=== PATIENT | female | born 1935 | race Caucasian/White ===

== ENCOUNTER 2016-07-31 07:09 | Inpatient (IN) | payer MEDICARE, BC ==
--- NOTE | ~2016-07-31 | CO ---
Unit #: [id number] #: [id number] Patient: FRANDY CONLEY [id number] [facility]. [place], [place] [address] [id number] MR#: [id number] NAME: FRANDY CONLEY ROOM: [facility] Age: 80 Sex: F Admission Date: 07/31/2016 : 1935 Attending Physician: Manuel Dolan III, M.D. Primary Care Physician: Kelly Frey A.P.R.N. Consultation Date: 08/02/2016 CONSULTATION REPORT REASON FOR CONSULTATION Renal insufficiency. Thank you very much for asking us to see this patient in consultation. HISTORY OF PRESENT ILLNESS Ms. Mariajose Conley is an 80-year-old female, who underwent a laparoscopic colostomy take down. Subsequently, postop noted to have an increased blood pressure of 225/95 as well as a decreasing hemoglobin. She was retaken operating room to fix a little leak. She has a history of sigmoid resection with colostomy in the past secondary to perforation. We were asked to see the patient secondary to increasing BUN and creatinine of 51 and 3.7 with potassium of 4.0. The patient is alert. She is a little sore, but she is not having any chest pain, chest heaviness, shortness of breath, nausea or vomiting. PAST MEDICAL HISTORY History of hypertension, history of hyperlipidemia, history of atrial fibrillations, history of atherosclerotic coronary artery disease normal EF, history of sigmoid resection, history of PE/DVT 9 years ago, history of obstructive sleep apnea, history of bladder surgery, status post appendectomy, status post hysterectomy, status post left knee. SOCIAL HISTORY She is a previous smoker, none now. She is a . Retired. No alcohol. ALLERGIES Include penicillin, diazepam, latex, and contrast dye. CURRENT MEDICATIONS Include Tenormin, lactated Ringer's, morphine, and Zofran. REVIEW OF SYSTEMS She denies any visual problems or sinus problems. No cough or hemoptysis. No neck pain or neck stiffness. No chest pain, chest heaviness, or palpitations. No shortness of breath. She has had abdomen sore. She denies any lower extremity swelling. No recent seizures, strokes, or skin rashes. PHYSICAL EXAMINATION GENERAL: She is alert and oriented. VITAL SIGNS: Temperature is 98.1, T-max; pulse 54 to 65; blood pressure 90 to 120 over 40s to 50s. HEENT: She is normocephalic and atraumatic. Pupils are equal, round, and Unit #: [id number] #: [id number] Patient: FRANDY CONLEY reactive to light. Extraocular muscles are intact. Hearing appears to be normal. Mouth is clear. No erythema. No exudate. NECK: Supple. No adenopathy. CARDIAC: She has a regular rhythm with about a 2/6 systolic ejection murmur. LUNGS: Fairly clear bilaterally. No wheezes, rhonchi, or rales. ABDOMEN: Bowel sounds are positive. Wound dressed. EXTREMITIES: She has no lower extremity swelling. Her pulses are intact in upper and lower extremities. JOINTS: No joint pain or joint swelling. SKIN: No acute rashes. NEUROLOGIC: Appears to be intact motor and sensory grossly. : Deferred. DIAGNOSTIC STUDIES LABORATORY RESULTS: Shows sodium of 133, potassium of 4.0, chloride is 102, bicarb is 22, BUN of 51, creatinine 3.7, glucose is 107, calcium is 8.2. Hemoglobin 7.7, it dropped as low as 5.8; white count 16,500; platelets 140,000. On 07/21/2016, she had a creatinine of 1.4 and on 04/15/2016, creatinine of 1.1. INR is 1.7. ASSESSMENT AND PLAN Acute onset of mild chronic kidney disease, stage 3. Probably, I suspect the patient's renal insufficiency is most likely related to intravascular volume depletion from bleeding potential, acute tubular necrosis as well and surgery. I agree with intermittent transfusion IV fluids. We will mold changer to normal saline. Hopefully, over the next 24 to 72 hours, her renal function will start improving. We will check renal ultrasound. We will check UA culture and sensitivity, urine sodium, random urine eosinophils. We will follow inputs and outputs and depending on how she does, depending on what further workup and treatment. Dictated byBrianne Matthews M.D. CHRISTA/ruben TD: 08/06/2016 05:04 JOB #: [id number] CONSULTATION REPORT X Joby Matthews MD CONSULTATION REPORT
--- NOTE | ~2016-07-31 | OR ---
Unit #: [id number] #: [id number] Patient: FRANDY CONLEY [id number] [address] [address] [id number] I MR#: [id number] NAME: FRANDY CONLEY ROOM: 471 Date of Procedure: 08/02/2016 Admission Date: 07/31/2016 Surgeon: Kareem Mark M.D. : 1935 Attending Physician: Manuel Dolan III, M.D. Primary Care Physician: Kelly Frey A.P.R.N. OPERATIVE REPORT PREOPERATIVE DIAGNOSIS Bleeding from left lower quadrant incision. POSTOPERATIVE DIAGNOSIS Subdermal bleeder. PROCEDURE PERFORMED Wound exploration and cauterization of the bleeding vessel. ANESTHESIA LMA. COMPLICATIONS None. ESTIMATED BLOOD LOSS Minimal. DESCRIPTION OF PROCEDURE After the patient was prepped and draped in usual fashion, the left lower quadrant transverse incision was examined. There was a steady drip of blood emanating from this. All the vinay were removed. The wound was opened. There was a liquefied hematoma, which was evacuated. Careful inspection revealed there was no blood coming from the subfascial layer. The fascial closure was intact. Pressing around the fascia, there was no blood could be expressed from underneath. There was a subdermal skin bleeder, which was identified and medial portion of the incision on the inferior side. This was cauterized until it stops bleeding. We waited about 4 to 5 minutes to see if anything else should start bleeding, nothing else started bleeding. With this, the skin was closed with clips. Dressings applied. The patient was taken to the recovery room in good condition. Dictated by... Deborah SchwartzT/ruben TD: 08/03/2016 04:37 JOB #: [id number] Unit #: [id number] #: [id number] Patient: FRANDY CONLEY OPERATIVE REPORT X Kareem Mark PROCEDURE OPERATIVE NOTE
--- NOTE | ~2016-07-31 | CO ---
Unit #: [id number] #: [id number] Patient: RFANDY CONLEY [id number] [address] [place], [place] [address] [id number] MR#: [id number] NAME: FRANDY CONLEY ROOM: 471 Age: 80 Sex: F Admission Date: 07/31/2016 : 1935 Attending Physician: Manuel Dolan III, M.D. Primary Care Physician: Kelly Frey A.P.R.N. Consultation Date: 07/31/2016 CONSULTATION REPORT REASON FOR CONSULTATION Hypertension. HISTORY OF PRESENT ILLNESS This is an 80-year-old white female, who is admitted status post laparoscopic colostomy takedown. Preoperatively, the patient had a Lexiscan Cardiolite stress test in May that was normal. Her last echocardiogram in 2015 showed no significant valvular heart disease and moderate pulmonary hypertension. Intraoperatively, the patient was hypertensive. In recovery, her blood pressure was elevated to 225/95 mmHg. Since, her blood pressure has stabilized. The patient has no complaints of chest pain, dyspnea, palpitations, or dizziness. She says at home she takes her blood pressure in the mornings and is elevated. After she takes her medications, she rechecked her blood pressure and it becomes normal. She is reasonably active without any symptoms. PAST MEDICAL HISTORY 1. 2D echocardiogram on 02/24/2016 shows ejection fraction of 65% with mild tricuspid regurgitation and right ventricular systolic pressure 51 mmHg. 2. Lexiscan Cardiolite stress test on 06/30/2016 showed no ischemia and an ejection fraction of 55%. No focal wall abnormalities. 3. Cardiac catheterization in 2010 per [facility] office note showed mid LAD stenosis of 30% to 40%. There is luminal irregularities in the right coronary artery and circumflex. 4. Hypertension. 5. Hyperlipidemia. 6. Paroxysmal atrial fibrillation, on anticoagulation with Coumadin. 7. Obstructive sleep apnea. 8. DVT/pulmonary embolism. 9. Former smoker. PAST SURGICAL HISTORY 1. Left knee replacement. 2. Hysterectomy. 3. Cataract extraction. 4. Appendectomy. 5. Partial colectomy with colostomy. 6. Laparoscopic cholecystectomy. 7. Bladder lift with mesh placement. SOCIAL HISTORY The patient is retired. She is . She quit smoking more than 25 years ago. Previously smoked a 1-1/2 packs of cigarettes daily for 20 Unit #: [id number] #: [id number] Patient: FRANDY CONLEY. Drinks alcohol on rare occasions. No illicit drug use. FAMILY HISTORY Mother had myocardial infarction, but lived to be in her 80s. Father also had myocardial infarction and he lived to be in his 90s. ALLERGIES Penicillin, diazepam, latex, and IV contrast. HOME MEDICATIONS Glucosamine chondroitin 1 tablet daily, MiraLAX 17 g daily p.r.n., amiodarone 200 mg daily, Centrum Silver 1 tablet daily, lisinopril 10 mg daily, omeprazole 20 mg b.i.d., Coumadin 5 mg daily, atenolol 25 mg daily. REVIEW OF SYSTEMS CONSTITUTIONAL: Negative for fever or chills. Reports no weight gain or weight loss. HEENT: No headache, hearing, or vision changes, difficulty with swallowing. Negative for dizziness. CARDIOVASCULAR: Has no symptoms of angina. Denies palpitations. No paroxysmal nocturnal dyspnea or orthopnea. No syncope or near syncope. RESPIRATORY: Negative for dyspnea, cough, or hemoptysis. GASTROINTESTINAL: No abdominal pain, nausea, or vomiting. No constipation. No melena. EXTREMITIES: Negative for lower extremity edema. PHYSICAL EXAMINATION VITAL SIGNS: Blood pressure 126/70, heart rate 62, temperature 97.7. BMI 23. GENERAL: This is an 80-year-old thin frame white female, who is in no acute distress. NEUROLOGIC: She is awake, alert, and oriented. There are no focal weaknesses. NECK: Trachea is midline. No thyromegaly or lymphadenopathy. No jugular venous distention. HEART: S1 and S2. Heart sounds are normal. No murmurs. No rubs or clicks. Regular rate and rhythm. LUNGS: Clear to auscultation without rales, rhonchi, or wheezing. ABDOMEN: Soft, tender, with hypoactive bowel sounds. EXTREMITIES: Without leg edema. SKIN: Warm and dry. DIAGNOSTIC STUDIES LABORATORY RESULTS: White count 9.0, hemoglobin 13.3, hematocrit 37.7, platelet count 275. CARDIOVASCULAR STUDIES: EKG pending. IMPRESSION 1. Status post laparoscopic colostomy takedown. 2. Labile hypertension. 3. Paroxysmal atrial fibrillation, currently in normal sinus rhythm. 4. Preserved left ventricular systolic function. Ejection fraction of 65%. 5. Recent Lexiscan Cardiolite stress test in 05/2016 normal. 6. Nonobstructive coronary artery disease per cardiac catheterization in 2010. Unit #: [id number] #: [id number] Patient: FRANDY CONLEY PLAN 1. Cardiology was consulted for hypertensive management. The patient's blood pressure is currently fluctuating. We will avoid treating elevated blood pressure with IV medications. 2. Continue atenolol and lisinopril. Change dosing of lisinopril to p.m. 3. Restart Coumadin when okay with surgery. 4. Baseline EKG will be done. 5. We will follow the patient with you. Thank you for allowing us to assist in this patient's care. Dictated by... Donny Lane A.P.R.N. for Deborah Shankar/ruben TD: 08/01/2016 22:38 JOB #: [id number] CC: Sebastián Ghosh M.D. CONSULTATION REPORT X Donny Lane APRN X CONSULTATION REPORT
--- NOTE | ~2016-07-31 | DS ---
Unit #: [id number] #: [id number] Patient: FRANDY CONLEY [id number] [place], [place] [address] [id number] I MR#: [id number] NAME: RFANDY CONLEY. ROOM: [facility] Age: 80 Sex: F Admission Date: 07/31/2016 : 1935 Discharge Date: 08/06/2016 Attending Physician: Manuel Dolan III, M.D. Primary Care Physician: Kelly Frey A.P.R.N. DISCHARGE SUMMARY CONSULTATIONS 1. Dr. Ghosh with cardiology. 2. Dr. Matthews with renal. PROCEDURE PERFORMED 1. On 07/31/2016 she underwent laparoscopic colostomy takedown. 2. On 08/02/2016 she underwent left lower quadrant wound exploration for postoperative bleeding. ADMITTING DIAGNOSIS History of colostomy secondary to perforated diverticulitis. SECONDARY DIAGNOSES 1. Acute kidney injury. 2. Hypertension. BRIEF HOSPITAL COURSE This is an 80-year-old lady who is 6 months out from exploratory laparotomy with colostomy creation for perforated diverticulitis. She was brought in for laparoscopic colostomy takedown. The procedure went well; however, postoperatively, presumably secondary to blood thinners, she developed a bleed in the subcutaneous tissue. She dropped her hemoglobin significantly and was brought back to surgery for left lower quadrant wound exploration. She was transfused, and her hemoglobin ultimately stabilized. She was seen by her premium card cancellation clerk while she was in the hospital, and because of the postoperatively bleeding, she had some acute kidney injury that did resolve with transfusion and hydration. Prior to discharge she was having good GI function and tolerating a diet. Her incisions were okay, and her hemoglobin was stable at 10.5. DISPOSITION Transfer to rehab. The patient likely is going to need short-term rehab for mobility issues. FOLLOW-UP She is to see me in the office next week to have her vinay removed. DISCHARGE INSTRUCTIONS 1. She has been instructed it is okay to shower. 2. Her diet is as tolerated. MEDICATIONS I am going to resume her previous medications, add her pain medication and Unit #: [id number] #: [id number] Patient: GRASS,FRANDY L also have cardiology verify that there are no other medications that they want her to be taking at time of discharge. Dictated by... Manuel Dolan III, M.D. VCL/db TD: 08/06/2016 08:01 JOB #: [id number] DISCHARGE SUMMARY X Manuel Dolan III, MD X DISCHARGE SUMMARY
--- NOTE | ~2016-07-31 | EKG ---
PATIENT: FRANDY CONLEY UNIT #: [id number] Ventricular Rate: 61 BPM Atrial Rate: 61 BPM P-R Interval: 176 ms QRS Duration: 102 ms Q-T Interval: 472 ms QTC Calculation(Bezet): 475 ms P [place]: 63 degrees Calculated R [place]: -9 degrees Calculated T [place]: 29 degrees Diagnosis Line: Normal sinus rhythm Diagnosis Line: Voltage criteria for left ventricular hypertrophy Diagnosis Line: Abnormal ECG Diagnosis Line: When compared with ECG of 12-APR-2016 07:51, Diagnosis Line: No significant change was found Diagnosis Line: Confirmed by JULIA BLANC MD ([id number]) on Diagnosis Line: 08/04/2016 3:55:54 PM INTERPRETING MD: GUANACO OLVERA
--- NOTE | ~2016-07-31 | OR ---
Unit #: [id number] #: [id number] Patient: FRANDY CONLEY [id number] [address] [place], [place] [address] [id number] I MR#: [id number] NAME: FRANDY CONLEY. ROOM: 471 Date of Procedure: 07/30/2016 Admission Date: 07/31/2016 Surgeon: Manuel Dolan III, M.D. : 1935 Attending Physician: Manuel Dolan III, M.D. Primary Care Physician: Kelly Frey A.P.R.N. OPERATIVE REPORT PREOPERATIVE DIAGNOSES Dysphagia and history of perforated sigmoid diverticulitis. POSTOPERATIVE DIAGNOSES Normal upper endoscopy, mild sigmoid diverticulosis and benign-appearing polyp at 50 cm of the colon. PROCEDURE PERFORMED Esophagogastroduodenoscopy with biopsy and colonoscopy to cecum with snare polypectomy x1. ANESTHESIA 5 mg of Versed and 50 mg of Demerol. SPECIMENS Antrum was sent for JADIEL testing and polyp at 50 cm was biopsied. INDICATIONS FOR PROCEDURE This is an 80-year-old lady, who presented about 6 months ago with perforated sigmoid diverticulitis with abscess. She underwent resection with colostomy formation. She has been seen in the office and evaluated for colostomy takedown. She has also been complaining of some dysphagia and is here today for upper and lower endoscopy. It has been 10 years since her last colonoscopy. DESCRIPTION OF PROCEDURE After consent was obtained, the patient was brought to the endoscopy suite and placed in left lateral decubitus position. We titrated the above sedation and I passed an EGD scope easily into the esophagus under direct visualization. She had normal peristalsis. No evidence of any erosions or esophagitis. There was no Schatzki's ring seen. I did not see hiatal hernia. The scope was advanced on into the stomach. I took a biopsy of the antrum for JADIEL testing. There were no ulcerations, gastritis or masses. The pylorus was patent and the first and second portions of duodenum appeared normal. I then retroflexed the scope within the cardia and did not see any other abnormalities. The scope was then carefully withdrawn. I then removed her colostomy appliance. I passed the colonoscope through the colostomy and advanced this all the way to the cecum. She had normal mucosa. There was some mild residual left-sided diverticular disease. She had one small hyperplastic appearing polyp at about 50 cm. This was snared and cauterized and a portion of it was captured and sent to pathology. I did not see any other masses. Her Unit #: [id number] #: [id number] Patient: FRANDY CONLEY bowel prep was good. The scope was then carefully withdrawn. I am going to have her stay on clear liquids today and be n.p.o. after midnight for laparoscopic colostomy takedown tomorrow. Dictated by... Manuel Dolan III, M.D. VCL/ruben TD: 07/31/2016 02:55 JOB #: [id number] OPERATIVE REPORT X Manuel Dolan III, MD PROCEDURE OPERATIVE NOTE
--- NOTE | ~2016-07-31 | EKG ---
PATIENT: FRANDY CONLEY UNIT #: [id number] Ventricular Rate: 73 BPM Atrial Rate: 73 BPM P-R Interval: 126 ms QRS Duration: 104 ms Q-T Interval: 414 ms QTC Calculation(Bezet): 456 ms P [place]: 34 degrees Calculated R Bone [place]: -18 degrees Calculated T Bone Gap: 49 degrees Diagnosis Line: Normal sinus rhythm Diagnosis Line: Voltage criteria for left ventricular hypertrophy Diagnosis Line: Abnormal ECG Diagnosis Line: When compared with ECG of 31-JUL-2016 17:35, Diagnosis Line: No significant change was found Diagnosis Line: Confirmed by SINA RIZVI MD ([id number]) on 08/06/2016 Diagnosis Line: 5:40:55 PM INTERPRETING MD: BELKYS OLVERA
--- NOTE | ~2016-07-31 | OR ---
Unit #: [id number] #: [id number] Patient: FRANDY CONLEY [id number] [address] [place], [place] [address] [id number] MR#: [id number] NAME: FRANDY CONLEY ROOM: 471 Date of Procedure: 07/31/2016 Admission Date: 07/31/2016 Surgeon: Manuel Dolan III, M.D. : 1935 Attending Physician: Manuel Dolan III, M.D. Primary Care Physician: Kelly Frey A.P.R.N. OPERATIVE REPORT PREOPERATIVE DIAGNOSIS History of colostomy secondary to perforated diverticulitis. POSTOPERATIVE DIAGNOSIS History of colostomy secondary to perforated diverticulitis. PROCEDURE PERFORMED Laparoscopic takedown of end colostomy with colorectal anastomosis. MANAGER BUSINESS INFORMATION Moris Kwok. SPECIMEN Colostomy was sent to pathology. COMPLICATIONS None apparent. INDICATIONS FOR PROCEDURE This is an 80-year-old lady, who is 6 months out from exploratory laparotomy and colostomy formation for perforated diverticulitis. She underwent colonoscopy yesterday and was noted to have only some mild residual diverticular disease. She is here today for colostomy takedown. DESCRIPTION OF PROCEDURE After consent was obtained, the patient was brought to the operating room and placed in the supine position. General anesthetic was administered. She was then carefully positioned in the dorsal lithotomy position in Blake stirrups. I then irrigated her rectum and removed two large pieces of formed stool. We prepped and draped her abdomen and perineum in standard surgical fashion. I made a 5-mm incision in the right upper quadrant. I used an Optiview to enter the peritoneal cavity without any difficulty. CO2 pneumoperitoneum was then established. Next, a second 5-mm port was placed in the right lower quadrant. I began by performing diagnostic laparoscopy. She had very few adhesions that were easily taken down bluntly. I was able to sharply dissect out the underside of her colostomy and I was able to see clearly the rectal pouch. I then made elliptical incision around the colostomy. I dissected down to the fascia and I was able to excise the colostomy from the surrounding fascial defect. Once the colostomy was fully mobilized, I then trimmed the excess bit of the tip of the colostomy. I then used a 29 mm EEA anvil that I brought out through the antimesenteric border and closed the distal end of Unit #: [id number] #: [id number] Patient: FRANDY CONLEY the colon with a ZEUS 55 stapler. Next, the proximal colon was placed back into the abdominal cavity. I then closed the fascial defect with interrupted #1 Vicryl sutures. Next, I re-obtained pneumoperitoneum. I then passed the other end of the stapler per rectum. We were able to easily deploy the spike through the anterior side of the rectal pouch. I was able to connect the two ends of the stapler together. It was closed down and then the stapler was fired without any problems. Next, the stapler was carefully removed. I tested the anastomosis by submerging it under water and insufflating air per rectum, and I did not see any air bubbles indicating this was airtight and watertight. I then irrigated again. I had excellent hemostasis and all needle, sponge, and instrument counts were correct x2. I removed the two trocars and released the pneumoperitoneum. I reapproximated the skin edges with stapling device. She tolerated the procedure without any problems and returned to the recovery room in stable condition. Dictated by... Manuel Dolan III, M.D. VCL/ruben TD: 08/01/2016 04:10 JOB #: [id number] OPERATIVE REPORT X Manuel Dolan III, MD PROCEDURE OPERATIVE NOTE
--- NOTE | ~2016-07-31 | US78 ---
[facility] A Service of [facility] & [facility] RADIOLOGY TEXT RESULTS PATIENT: FRANDY CONLEY LOCATION: [place] [address]- : [birth year] UNIT #: [id number] AGE: [address]: Manuel Dolan III, MD SEX: F ORDER DR: [id number] [facility] [address] [facility]. [place], [place] [address] [id number] I MR#: [id number] Acc #: [id number] NAME: FRANDY CONLEY : 1935 SEX: F STUDY DATE/TIME: 08/03/2016 10:19 UNIT: [facility] [place] [facility] ROOM: [facility] STUDY DESCRIPTION: US Kidney Duplex Complete Attending Physician: Manuel Dolan III, M.D. Ordering Physician: Manuel Dolan III, M.D. Primary Care Physician: Kelly Frey A.P.R.N. MEDICAL IMAGING REPORT This report is preliminary unless electronic signature is present EXAM Renal ultrasound, 08/03/2016 HISTORY Acute renal failure, abnormal renal function tests. Elevated BUN of 50, elevated creatinine 1.9. Abnormally low GFR of 27 on 08/03/2016. Abdomen pain for 2 months. FINDINGS The right kidney measures 9.9 cm while the left kidney measures 9.0 cm in longitudinal dimensions. There is no evidence of hydronephrosis or nephrolithiasis. No cystic or solid mass lesions were seen on either kidney. There is normal renal cortical echogenicity. The bladder was empty for the exam and therefore poorly visualized. IMPRESSION 1. Negative renal ultrasound. 2. The bladder was empty for the exam and therefore poorly visualized. Dictated by... Dedrick Iraheta M.D. THIS IS AN ELECTRONICALLY VERIFIED REPORT Dedrick Iraheta M.D. at 08/04/2016 6:06 AM JUANA/tammie TD: 08/03/2016 17:55 JOB #: [id number] MEDICAL IMAGING REPORT COPY
[~2016-07-31 07:09] MED LIST: ALLERGY10 M2 PO; AMIODARONE PO; ASPIRIN PO; ATENOLOL25 MG PO; B-122500 MCG SL; BAYER ASPIRIN325 M1 PO; BISACODYL EC5 M1 PO; CENTRUM SILVER PO; CERTAGEN PO; COLACE PO; COUMADIN2.5 MG PO; COUMADIN5 MG PO; DEXAMETHASONE4 MG PO; GLUCOSAMINE-CH1 EA13 PO; IMDUR PO; IMDUR-ER60 MG PO; LISINOPRIL10 MG; LISINOPRIL20 MG PO; LOPRESSOR PO; LORTAB 7.5-3251 EACH PO; MELATONIN5 M1 PO; METOPROLOL TAR25 MG DOB; MIRALAX17 GM PO; NEXIUM PO; OMEPRAZOLE20 M1 PO; OMEPRAZOLE20 M2 PO; PILOCARPINE HCL5 MG PO; PROAMATINE10 MG PO; TOLTERODINE TART2 M1 PO; TRANXENE T-TAB7.5 MG PO; TRIAMTERENE/HCTZ PO; VITAMIN E400 UNI5 PO
[2016-07-31 08:20] LABS: BASOPHIL# 0.1 X10e3 (0-0.3); BASOPHIL% 0.8 % (0-2.5); EOSINOPHIL# 0.2 X10e3 (0-0.7); EOSINOPHIL% 1.8 % (0.0-7.0); HEMATOCRIT 34.7 % (35.0-45.0); HEMOGLOBIN 11.3 gm/dL (12.0-16.0); LYMPHOCYTE% 21.9 % (17.0-45.0); MEAN CELL VOLUME 88.1 FL (83-96); MEAN CORPUSCULAR HEMOGLOBIN 28.8 PG (28-34); MEAN CORPUSCULAR HGB CONC 32.7 g/dL (30-36); MEAN PLATELET VOLUME 7.8 FL (6.5-11.5); MONOCYTE% 10.6 % (3.0-12.0); NEUTROPHIL# 5.8 X10e3 (1.5-7.1); NEUTROPHIL% 64.9 % (40-75); PLATELET COUNT 275 X10e3 (140-420); RED BLOOD COUNT 3.94 X10e (3.90-5.30); RED CELL DISTRIBUTION WIDTH 14.5 % (11.0-15.5)
[2016-07-31 08:22] LABS: DIFF IND NO
[2016-07-31 08:23] LABS: INR 1.4; PROTHROMBIN TIME (PATIENT) 14.8 SECONDS (9.6-11.5)
[2016-08-01 03:52] LABS: HEMATOCRIT 24.3 % (35.0-45.0); MEAN CELL VOLUME 89.6 FL (83-96); MEAN CORPUSCULAR HEMOGLOBIN 27.9 PG (28-34); MEAN CORPUSCULAR HGB CONC 31.2 g/dL (30-36); MEAN PLATELET VOLUME 8.1 FL (6.5-11.5); RED BLOOD COUNT 2.71 X10e (3.90-5.30)
[2016-08-01 04:06] LABS: BUN/CREATININE RATIO 14.09; CALCIUM SERUM 8.5 mg/dL (8.4-10.2); CREATININE SERUM 2.2 mg/dL (0.6-1.4); GLOM FILT RATE Estimated 22.8 mL/min (>60); POTASSIUM 4.3 mmol/L (3.5-5.1)
[2016-08-01 04:08] LABS: HEMOGLOBIN 7.6 gm/dL (12.0-16.0); WHITE BLOOD COUNT 22.2 X10e3 (4.0-10.5)
[2016-08-02 02:14] LABS: MEAN CORPUSCULAR HEMOGLOBIN 28.7 PG (28-34); MEAN CORPUSCULAR HGB CONC 32.3 g/dL (30-36); MEAN PLATELET VOLUME 8.3 FL (6.5-11.5); RED BLOOD COUNT 2.02 X10e (3.90-5.30); RED CELL DISTRIBUTION WIDTH 14.1 % (11.0-15.5); WHITE BLOOD COUNT 18.9 X10e3 (4.0-10.5)
[2016-08-02 02:18] LABS: HEMOGLOBIN 5.8 gm/dL (12.0-16.0)
[2016-08-02 02:39] LABS: BUN/CREATININE RATIO 13.78; CALCIUM SERUM 8.2 mg/dL (8.4-10.2); CREATININE SERUM 3.7 mg/dL (0.6-1.4); GLOM FILT RATE Estimated 12.5 mL/min (>60)
[2016-08-02 03:42] LABS: HEMATOCRIT 18.8 % (35.0-45.0)
[2016-08-02 03:43] LABS: HEMOGLOBIN 6.1 gm/dL (12.0-16.0)
[2016-08-02 03:52] LABS: INR 1.7; PROTHROMBIN TIME (PATIENT) 18.8 SECONDS (9.6-11.5)
[2016-08-02 03:55] LABS: PARTIAL THROMBOPLASTIN TIME 46.9 SECONDS (23.5-31.3)
[2016-08-02 09:09] LABS: HEMATOCRIT 21.4 % (35.0-45.0)
[2016-08-02 13:04] LABS: MEAN CELL VOLUME 88.3 FL (83-96); MEAN CORPUSCULAR HEMOGLOBIN 29.4 PG (28-34); MEAN CORPUSCULAR HGB CONC 33.3 g/dL (30-36); MEAN PLATELET VOLUME 8.4 FL (6.5-11.5); RED BLOOD COUNT 2.71 X10e (3.90-5.30); RED CELL DISTRIBUTION WIDTH 14.6 % (11.0-15.5); WHITE BLOOD COUNT 16.5 X10e3 (4.0-10.5)
[2016-08-02 14:20] LABS: HEMATOCRIT 23.6 % (35.0-45.0); HEMOGLOBIN 7.7 gm/dL (12.0-16.0)
[2016-08-02 20:10] LABS: HEMATOCRIT 22.8 % (35.0-45.0); HEMOGLOBIN 7.5 gm/dL (12.0-16.0)
[2016-08-03 04:37] LABS: ALBUMIN SERUM 2.3 g/dL (3.5-5.0); BILIRUBIN,TOTAL 0.6 mg/dL (0.2-2.0); BUN/CREATININE RATIO 26.31; CALCIUM SERUM 8.3 mg/dL (8.4-10.2); CREATININE SERUM 1.9 mg/dL (0.6-1.4); MAGNESIUM 1.7 mg/dL (1.6-3.0); PHOSPHOROUS 3.5 mg/dL (2.5-4.6); POTASSIUM 4.3 mmol/L (3.5-5.1)
[2016-08-03 07:26] LABS: URINE APPEARANCE CLEAR; URINE BILIRUBIN NEG (NEG); URINE BLOOD TRACE (NEG); URINE COLOR YELLOW; URINE GLUCOSE NEG (NEG); URINE KETONE NEG (NEG); URINE LEUKOCYTE ESTERASE TRACE (NEG); URINE NITRATE NEG (NEG); URINE PROTEIN NEG (NEG); URINE UROBILINOGEN 0.2 MG/DL (NEG)
[2016-08-03 07:28] LABS: URBCS1 AUWI 0-2 /[HPF] (0-2); URINE BACTERIA AUWI NEG (NEGATIVE); URINE SQUAMOUS EPITHELIAL CELL OCC /[HPF]
[2016-08-03 07:39] LABS: URINE YEAST PRESENT
[2016-08-03 08:53] LABS: HEMATOCRIT 21.6 % (35.0-45.0); HEMOGLOBIN 7.1 gm/dL (12.0-16.0)
[2016-08-04 07:48] LABS: BASOPHIL# 0.1 X10e3 (0-0.3); BASOPHIL% 0.5 % (0-2.5); EOSINOPHIL# 0.2 X10e3 (0-0.7); EOSINOPHIL% 1.3 % (0.0-7.0); HEMOGLOBIN 9.4 gm/dL (12.0-16.0); LYMPHOCYTE# 1.8 X10e3 (1.0-3.5); LYMPHOCYTE% 14.2 % (17.0-45.0); MEAN CELL VOLUME 88.2 FL (83-96); MEAN CORPUSCULAR HEMOGLOBIN 29.5 PG (28-34); MEAN CORPUSCULAR HGB CONC 33.5 g/dL (30-36); MEAN PLATELET VOLUME 8.2 FL (6.5-11.5); MONOCYTE# 1.2 X10e3 (0-1.0); MONOCYTE% 9.2 % (3.0-12.0); NEUTROPHIL# 9.4 X10e3 (1.5-7.1); NEUTROPHIL% 74.8 % (40-75); PLATELET COUNT 151 X10e3 (140-420); RED BLOOD COUNT 3.17 X10e (3.90-5.30); RED CELL DISTRIBUTION WIDTH 14.6 % (11.0-15.5); WHITE BLOOD COUNT 12.5 X10e3 (4.0-10.5)
[2016-08-04 08:19] LABS: PARTIAL THROMBOPLASTIN TIME 26.1 SECONDS (23.5-31.3)
[2016-08-04 08:24] LABS: BUN/CREATININE RATIO 29.23; CALCIUM SERUM 8.6 mg/dL (8.4-10.2); CREATININE SERUM 1.3 mg/dL (0.6-1.4); GLOM FILT RATE Estimated 41.9 mL/min (>60); POTASSIUM 4.4 mmol/L (3.5-5.1)
[2016-08-04 10:05] LABS: DIFF IND NO
[2016-08-05 05:46] LABS: BASOPHIL% 0.3 % (0-2.5); EOSINOPHIL# 0.2 X10e3 (0-0.7); EOSINOPHIL% 2.1 % (0.0-7.0); HEMATOCRIT 30.8 % (35.0-45.0); HEMOGLOBIN 10.2 gm/dL (12.0-16.0); LYMPHOCYTE# 1.2 X10e3 (1.0-3.5); LYMPHOCYTE% 11.4 % (17.0-45.0); MEAN CELL VOLUME 88.1 FL (83-96); MEAN CORPUSCULAR HEMOGLOBIN 29.2 PG (28-34); MEAN CORPUSCULAR HGB CONC 33.1 g/dL (30-36); MONOCYTE# 1.2 X10e3 (0-1.0); MONOCYTE% 11.5 % (3.0-12.0); NEUTROPHIL# 7.7 X10e3 (1.5-7.1); NEUTROPHIL% 74.7 % (40-75); PLATELET COUNT 136 X10e3 (140-420); RED BLOOD COUNT 3.49 X10e (3.90-5.30); RED CELL DISTRIBUTION WIDTH 14.6 % (11.0-15.5); WHITE BLOOD COUNT 10.4 X10e3 (4.0-10.5)
[2016-08-05 05:52] LABS: DIFF IND NO
[2016-08-05 06:39] LABS: BUN/CREATININE RATIO 25.45; CALCIUM SERUM 8.7 mg/dL (8.4-10.2); CREATININE SERUM 1.1 mg/dL (0.6-1.4); GLOM FILT RATE Estimated 50.8 mL/min (>60); POTASSIUM 4.3 mmol/L (3.5-5.1)
[2016-08-06 03:12] LABS: HEMATOCRIT 31.8 % (35.0-45.0); HEMOGLOBIN 10.5 gm/dL (12.0-16.0); MEAN CELL VOLUME 88.7 FL (83-96); MEAN CORPUSCULAR HEMOGLOBIN 29.4 PG (28-34); MEAN CORPUSCULAR HGB CONC 33.2 g/dL (30-36); MEAN PLATELET VOLUME 7.6 FL (6.5-11.5); RED BLOOD COUNT 3.58 X10e (3.90-5.30); RED CELL DISTRIBUTION WIDTH 14.7 % (11.0-15.5); WHITE BLOOD COUNT 10.1 X10e3 (4.0-10.5)
[2016-08-06 03:37] LABS: CALCIUM SERUM 8.4 mg/dL (8.4-10.2); GLOM FILT RATE Estimated 56.7 mL/min (>60); MAGNESIUM 1.7 mg/dL (1.6-3.0)
== END 2016-08-06 15:03 | DRG 329 ==
LOC: CSUR 07:09 → CPACUOF 10:00 → C4C 14:04 → C4B 08-05 17:52
PROVIDERS: Internal Medicine Nephrology; Nurse Practitioner; Surgery
PROC: 0DB68ZX Excision of Stomach, Via Natural or Artificial Opening Endoscopic, Diagnostic (ICD-10-PCS; 2016-07-31)
PROC: 0DBE8ZX Excision of Large Intestine, Via Natural or Artificial Opening Endoscopic, Diagnostic (ICD-10-PCS; 2016-07-31)
PROC: 0DBE4ZZ Excision of Large Intestine, Percutaneous Endoscopic Approach (ICD-10-PCS; principal; 2016-07-31 09:00)
PROC: 0W3F0ZZ Control Bleeding in Abdominal Wall, Open Approach (ICD-10-PCS; 2016-08-02)
PROC: 30233N1 Transfusion of Nonautologous Red Blood Cells into Peripheral Vein, Percutaneous Approach (ICD-10-PCS; 2016-08-02)
DX: Z43.3 Encounter for attention to colostomy (principal); N17.0 Acute kidney failure with tubular necrosis; I48.0 Paroxysmal atrial fibrillation; R13.10 Dysphagia, unspecified; E87.1 Hypo-osmolality and hyponatremia; J44.9 Chronic obstructive pulmonary disease, unspecified; D62 Acute posthemorrhagic anemia; K92.1 Melena; L76.22 Postprocedural hemorrhage of skin and subcutaneous tissue following other procedure; I12.9 Hypertensive chronic kidney disease with stage 1 through stage 4 chronic kidney disease, or unspecified chronic kidney disease; N18.3 Chronic kidney disease, stage 3 (moderate); Z87.891 Personal history of nicotine dependence; I25.10 Atherosclerotic heart disease of native coronary artery without angina pectoris; K21.9 Gastro-esophageal reflux disease without esophagitis; Z90.49 Acquired absence of other specified parts of digestive tract; Z90.710 Acquired absence of both cervix and uterus; Y83.9 Surgical procedure, unspecified as the cause of abnormal reaction of the patient, or of later complication, without mention of misadventure at the time of the procedure; K57.30 Diverticulosis of large intestine without perforation or abscess without bleeding; K63.5 Polyp of colon; Z88.0 Allergy status to penicillin; Z88.8 Allergy status to other drugs, medicaments and biological substances; Z91.041 Radiographic dye allergy status; Z91.040 Latex allergy status; Z79.01 Long term (current) use of anticoagulants; J45.909 Unspecified asthma, uncomplicated; I25.2 Old myocardial infarction
CPT/HCPCS: 80048; 80053; 81003; 83735; 84100; 84300; 85014; 85018; 85025; 85027; 85610; 85730; 86850; 86900; 86901; 86923; 87077; 87086; 88302; 88305; 89190; 93005; 93975; 94010; 94760; 97110; 97116; 97163; 97530; G8978-GP; G8979-GP; G8980-GP; J0330; J0360; J1100; J1170; J1650; J1885; J2175; J2250; J2270; J2405; J2710; J3010; P9016

== ENCOUNTER 2016-08-14 13:37 | Inpatient (IN) | payer MEDICARE, BC ==
--- NOTE | ~2016-08-14 | CT4 ---
[facility] A Service of [facility] & [facility] RADIOLOGY TEXT RESULTS PATIENT: FRANDY CONLEY LOCATION: C2A : 35 UNIT #: [id number] AGE: [address]: Manuel Dolan III, MD SEX: F ORDER DR: [id number] [facility] [address] [facility] [address] [facility] [place], [place] [address] [id number] I MR#: [id number] Acc #: [id number] NAME: FRANDY CONLEY : 1935 SEX: F STUDY DATE/TIME: 08/18/2016 9:02 UNIT: C2A ROOM: 219 STUDY DESCRIPTION: CT Abd and Pelv Wo Cont Attending Physician: Manuel Dolan III, M.D. Ordering Physician: Crispin Tariq M.D. Primary Care Physician: Kelly Frey A.P.R.N. MEDICAL IMAGING REPORT This report is preliminary unless electronic signature is present EXAM CT of the abdomen and pelvis, without contrast. HISTORY 80-year-old female with follow-up pelvic abscess. Recent drain placement. TECHNIQUE CT of the abdomen and pelvis was performed without contrast. Coronal and sagittal reformatted images were obtained. This CT exam was performed with one or more of the following radiation dose reduction techniques: automatic exposure control, adjustment of mA and/or kV according to patient size, and iterative reconstruction. COMPARISON STUDIES 08/13/2016 FINDINGS There are small bilateral pleural effusions. Associated passive atelectasis in the lower lobes. The liver is unremarkable. Cholecystectomy. Spleen unremarkable. Kidneys, adrenal glands, and pancreas are unremarkable. There are multiple dilated loops of small bowel. The degree of bowel loop dilatation has not significantly changed. PELVIS: Interval placement of a drain into a large fluid collection within the mid pelvis. The collection has decreased in size. It measures about 3.6 x 4.3 cm on the coronal view. Previously, it was about 5.3 x 7.0. On the axial view, it measures about 4.5 x 5.6 cm; previously, 8.1 x 6.8 cm. There is a collection in the right side of the pelvis that is not significantly changed. The remainder of the pelvis is stable. There is oral contrast now within the colon from the previous study. Bone windows are unremarkable. [facility] A Service of [facility] RADIOLOGY TEXT RESULTS PATIENT: FRANDY CONLEY LOCATION: [facility] [place] 219- : 35 UNIT #: [id number] AGE: [address]: Manuel Dolan III, MD SEX: F ORDER DR: IMPRESSION Status post drain placement into a pelvic fluid collection with decrease in size of the pelvic fluid collection, as described above. The drain is in good position. There is a second collection located on the right side of the pelvis, which is unchanged. Dictated by... Elder Brown M.D. THIS IS AN ELECTRONICALLY VERIFIED REPORT Elder Brown M.D. at 08/19/2016 11:31 AM PATEL/marybeth TD: 08/18/2016 16:30 JOB #: [id number] MEDICAL IMAGING REPORT Page 1 of 1 COPY
--- NOTE | ~2016-08-14 | A ---
[facility] Nutrition Therapy DATE: 08/24/16 Patient: FRANDY CONLEY Physician: GEENA Address: [address] [place] [address] DRIVE Room/Bed: [address], Zip: [place] [address] Admit Date: 08/14/16 Date of : 35 Height: 5 5 Weight: 145 66.2 NUTRITIONAL ASSESSMENT: REASON: LOS 80 y/o female admitted for pelvic pain PMH: HTN, HLD, atrial fibrillations, CAD, [place], diverticulitis, s/p lap colostomy reversal Anthropometrics: Ht: 5'6" Wt: 65.9 kg (143#) (admit wt) BMI: 23.4 Labs: GFR 50.8, AST 47, Lip 18 Meds: Colace, Phenergan, NaCl I/O & Bowel function: 1230/1400, last BM 08/23 Skin Integrity: Bruise (TRIP arms), scar (mid/vertical abd, R knee), surgical wound (L abd), no edema noted Assessment: Chart reviewed, events noted. Pt has been in and out of hospital d/t surgeries. Pt reported wt loss of unknown amount over the past year. Pt reports not liking food here and daughter bringing in food. Pt is on a regular diet and receiving Ensure TID, but requested only two per day. Encouraged adequate intake. See recommendations below. Dx: Indequate protein-energy intake RT current clinical condition AEB wt loss, eating poorly. Intervention: 1. Ensure BID Monitoring, Evaluation and Goals: 1. PO intake; consume ~80-100% of estimated nutrition needs 2. Weight; prevent unintentional weight loss 3. Skin; promote skin healing Recommendations: 1. Order chocolate Ensure BID with meals. D/C Ensure TID. 2. Appreciate family and staff to encourage adequate intake. Pt is at a mild nutritional risk. RD will f/u per protocol. Respectfully, [facility] Nutrition Therapy DATE: 08/24/16 Patient: FRANDY CONLEY Physician: GEENA Address: [address] [place] [address] Room/Bed: [address] [place] [address], Zip: [place] [address] Admit Date: 08/14/16 Date of : 35 Height: 5 5 Weight: 145 66.2 Kanwal Glaser, Third Cook Freddie Kim MS, RD, LD Food and Nutritional Services [facility] cc: client file
--- NOTE | ~2016-08-14 | XA3 ---
[facility] A Service of [facility] RADIOLOGY TEXT RESULTS PATIENT: FRANDY CONLEY LOCATION: C2A : 35 UNIT #: [id number] AGE: [address]: Manuel Dolan III, MD SEX: F ORDER DR: [id number] [facility] [address] [facility]. [place], [place] [address] [id number] I MR#: [id number] Acc #: [id number] NAME: FRANDY CONLEY : 1935 SEX: F STUDY DATE/TIME: 08/21/2016 8:38 UNIT: C2 ROOM: 219 STUDY DESCRIPTION: XA Abscess Drain Injection Attending Physician: Manuel Dolan III, M.D. Ordering Physician: Manuel Dolan III, M.D. Primary Care Physician: Kelly Frey A.P.R.N. MEDICAL IMAGING REPORT This report is preliminary unless electronic signature is present EXAM Abscess drain injection. DATE OF EXAM 08/21/2016 INDICATION Ms. Conley underwent drain placement August 16, 2016, for a pelvic hematoma. She had a repeat CT scan today which showed some persistent collection around the catheter. This is a drain check. PROCEDURE The risks, benefits, and alternatives to the procedure were explained to the patient, and signed, informed consent was obtained. She was placed supine on the angiographic table, prepped and draped in the usual sterile fashion. Initial broach trouble shooter image showed the previously placed drain. Contrast was injected through the catheter which showed complex material persisting in a small cavity around the drain. I flushed the catheter several times and was able to manually aspirate about 15 mL of bloody, very chunky material, and the catheter was placed back to suction drainage. At this point, I would suggest leaving the catheter in place for several more days and then obtaining a repeat study at that time to see if the collection has resolved at that time. Total fluoroscopy time was 0.2 minutes; AK was 9 mGy. IMPRESSION Abscess drain injection shows persistent cavity around the catheter containing thick material. I was able to manually aspirate about 15 mL of this material. I would leave the drain in place for several more days before rechecking to see if the fluid has resolved completely. Dictated by... Cristela Brooks M.D. [facility] A Service of [facility] RADIOLOGY TEXT RESULTS PATIENT: FRANDY CONLEY LOCATION: [place] [address] : 35 UNIT #: [id number] AGE: [address]: Manuel Dolan III, MD SEX: F ORDER DR: THIS IS AN ELECTRONICALLY VERIFIED REPORT Cristela Brooks M.D. at 08/24/2016 4:46 PM AFF/jjanene TD: 08/21/2016 23:04 JOB #: [id number] MEDICAL IMAGING REPORT Page 1 of 1 COPY
--- NOTE | ~2016-08-14 | CT4 ---
[facility] A Service of [facility] & [facility] RADIOLOGY TEXT RESULTS PATIENT: FRANDY CONLEY LOCATION: C2A : 35 UNIT #: [id number] AGE: [address]: Manuel Dolan III, MD SEX: F ORDER DR: [id number] [facility] [address] [facility]. [place], [place] [address] [id number] I MR#: [id number] Acc #: [id number] NAME: FRANDY CONLEY. : 1935 SEX: F STUDY DATE/TIME: 08/24/2016 8:05 UNIT: C2 ROOM: 219 STUDY DESCRIPTION: CT Abd and Pelv Wo Cont Attending Physician: Manuel Dolan III, M.D. Ordering Physician: Manuel Dolan III, M.D. Primary Care Physician: Kelly Frey A.P.R.N. MEDICAL IMAGING REPORT This report is preliminary unless electronic signature is present EXAM CT of the abdomen and pelvis without contrast INDICATION Pelvic abscess. This is a followup study. Patient underwent a drain placement on August 15, 2016. She had a repeat scan on August 21, 2016 which showed some persistent residual fluid around the drain. TECHNIQUE Axial CT images were obtained from the dome of the diaphragm through the symphysis pubis. No oral or intravenous contrast material was administered. This CT exam was performed with one or more of the following radiation dose reduction techniques: automatic exposure control, adjustment of mA and/or kV according to patient size, and iterative reconstruction. FINDINGS Images through the lung bases demonstrate background emphysematous changes. There are trace bilateral pleural effusions which are probably smaller than on prior examination as well as some minimal bibasilar atelectasis. The liver is unremarkable as are the spleen, stomach, proximal small bowel, adrenal glands and pancreas. Gallbladder is surgically absent. Areas of cortical thinning are seen within both kidneys which likely reflect the sequela of prior insults. There is dense atherosclerotic involvement of the abdominal aorta which continues into the iliac vessels. There is no evidence of mechanical bowel obstruction. The patient is again noted to have a pigtail drainage catheter within the left hemipelvis. I really do not see any residual fluid around this catheter. There may be another small collection within the right hemipelvis although this may simply reflect some bowel. No residual drainable fluid is seen [facility] A Service of [facility] & [facility] RADIOLOGY TEXT RESULTS PATIENT: FRANDY CONLEY LOCATION: [facility] 219-01 : 35 UNIT #: [id number] AGE: [address]: Manuel Dolan III, MD SEX: F ORDER DR: within the pelvis. Uterus is surgically absent. Urinary bladder appears unremarkable. Review of bony windows does not demonstrate any aggressive osseous abnormalities. Patient does have lumbar scoliosis with convexity to the left. IMPRESSION 1. No residual fluid is seen around this patient's pigtail drainage catheter. As such, we will plan on removing this catheter. No new or enlarging collections are seen within the pelvis. There is no evidence of mechanical bowel obstruction. 2. Trace bilateral pleural effusions right greater than left. These have improved when compared to the prior study. 3. Please see the body of the report for any other additional incidental findings. Dictated by... Cristela Brooks M.D. THIS IS AN ELECTRONICALLY VERIFIED REPORT Cristela Brooks M.D. at 08/24/2016 4:44 PM HERMELINDO/tammie TD: 08/24/2016 12:14 JOB #: [id number] MEDICAL IMAGING REPORT Page 1 of 1 COPY
--- NOTE | ~2016-08-14 | CT4 ---
[facility] A Service of [facility] & [facility] RADIOLOGY TEXT RESULTS PATIENT: FRANDY CONLEY LOCATION: C2A : 35 UNIT #: [id number] AGE: [address]: Manuel Dolan III, MD SEX: F ORDER DR: [id number] [facility] [address] [facility] [place] [facility]. [place], [place] [address] [id number] I MR#: [id number] Acc #: [id number] NAME: FRANDY CONLEY : 1935 SEX: F STUDY DATE/TIME: 08/21/2016 8:05 UNIT: C2A ROOM: 219 STUDY DESCRIPTION: CT Abd and Pelv Wo Cont Attending Physician: Manuel Dolan III, M.D. Ordering Physician: Manuel Dolan III, M.D. Primary Care Physician: Kelly Frey A.P.R.N. MEDICAL IMAGING REPORT This report is preliminary unless electronic signature is present EXAM CT of the abdomen and pelvis without contrast. INDICATION Ms. Conley is an 80-year-old lady who underwent pelvic drain placement on August 16, 2016. She underwent a followup study on August 18, 2016 which showed some residual fluid around the drain. This is a followup study., TECHNIQUE Axial CT images were obtained from the dome of the diaphragm through the symphysis pubis. No oral or intravenous contrast material was administered. This CT exam was performed with one or more of the following radiation dose reduction techniques: automatic exposure control, adjustment of mA and/or kV according to patient size, and iterative reconstruction. FINDINGS Background emphysematous changes are noted at the lung bases. Patient has some bibasilar atelectasis and trace bilateral pleural effusions, right greater than left. These are actually smaller than on the prior study. There is no pericardial effusion. Calcified granulomata are seen within the spleen. Stomach and proximal small bowel are within normal limits, as are the adrenal glands and pancreas. Liver appears unremarkable. Gallbladder is surgically absent. Kidneys are within normal limits for unenhanced technique. There is no evidence of mechanical bowel obstruction. There is persistent collection seen around the patient's pelvic abscess drain. This fluid collection measures about 4.3 x 3.8 cm, previously 5.6 x 4.5 cm. Urinary bladder appears unremarkable. Again, there is no evidence of mechanical bowel obstruction. Uterus is surgically absent. [facility] A Service of [facility] RADIOLOGY TEXT RESULTS PATIENT: FRANDY CONLEY LOCATION: [place] [address] : 35 UNIT #: [id number] AGE: [address]: Manuel Dolan III, MD SEX: F ORDER DR: Review of bony windows does not demonstrate any aggressive osseous abnormalities. IMPRESSION 1. Interval decrease in the size of the patient's pelvic fluid collection which now measures 4.3 x 3.8 cm, previously 5.6 x 4.4 cm. We will plan on transferring the patient to the interventional radiology department for assessment of the size of the residual cavity. If there is some persistent cavity there, we will plan on leaving the drain in place for several more days. Again, however, it is improved when compared to the prior CT. 2. Changes of prior cholecystectomy and hysterectomy. Patient is also status post colon resection. 3. Trace bilateral pleural effusions which have diminished when compared to the prior exam. Dictated by... Cristela Brooks M.D. THIS IS AN ELECTRONICALLY VERIFIED REPORT Cristela Brooks M.D. at 08/21/2016 4:48 PM AFF/flow TD: 08/21/2016 10:29 JOB #: [id number] MEDICAL IMAGING REPORT Page 1 of 1 COPY
--- NOTE | ~2016-08-14 | DS ---
Unit #: [id number] #: [id number] Patient: FRANDY CONLEY [id number] [place] [id number] [facility]. [place], [place] [address] [id number] I MR#: [id number] NAME: FRANDY CONLEY. ROOM: 219 Age: 80 Sex: F Admission Date: 08/14/2016 : 1935 Discharge Date: 08/25/2016 Attending Physician: Manuel Dolan III, M.D. Primary Care Physician: Kelly Frey A.P.R.N. DISCHARGE SUMMARY DISCHARGE DIAGNOSIS Pelvic fluid collections with small abscess and sinus tract, status post laparoscopic colostomy takedown. OPERATIVE PROCEDURES Percutaneous drainage of fluid collections in the pelvis. DISCHARGE MEDICATIONS Home medications. HISTORY OF PRESENT ILLNESS AND HOSPITAL COURSE An 80-year-old white female presented from the office 2 weeks status post left colostomy takedown, not feeling well with some purulent drainage from incision with noted leukocytosis, went for CT scan, showed some pelvic collections 6 to 8 cm in size with possible small bowel obstruction. There was a question whether there was a subclinical anastomotic leak. Coumadin was held. The areas were drained percutaneously. It appeared to be more old hematoma than anything else. We were concerned about the drainage showing, however, gram negative rods, so she was placed on intravenous antibiotics. A CT scan was performed again on the 08/18/2016, which shows persistent fluid collections, drain in good position, but smaller than amounts than before. Drains were left in and repeat CT scan on 08/24/2016 showed drainage complete. The drains were removed. The patient is afebrile. She feels better. She is tolerating her diet. She is ready to be discharged and she will go home and come back to see us in the office in 2 weeks. Dictated by... Deborah Ruelas/ruben TD: 08/25/2016 23:51 JOB #: [id number] Unit #: [id number] #: [id number] Patient: FRANDY CONLEY DISCHARGE SUMMARY Page 1 of 1 X Crispin Tariq MD DISCHARGE SUMMARY
--- NOTE | ~2016-08-14 | CT134 ---
[facility] A Service of [facility] & [facility] RADIOLOGY TEXT RESULTS PATIENT: FRANDY CONLEY LOCATION: C2A : 35 UNIT #: [id number] AGE: [address]: Manuel Dolan III, MD SEX: F ORDER DR: [id number] [facility] [address] [facility]. [place], [place] [address] [id number] I MR#: [id number] Acc #: [id number] NAME: FRANDY CONLEY : 1935 SEX: F STUDY DATE/TIME: 08/15/2016 11:39 UNIT: C2 ROOM: 219 STUDY DESCRIPTION: CT Guide Attending Physician: Manuel Dolan III, M.D. Ordering Physician: Manuel Dolan III, M.D. Primary Care Physician: Kelly Frey A.P.R.N. MEDICAL IMAGING REPORT This report is preliminary unless electronic signature is present EXAM CT-guided pelvic drainage 08/13/2016. CLINICAL HISTORY Pelvic pain and suspected abscess, two-weeks status post colostomy reversal with pelvic fluid collection. PROCEDURE Informed consent was obtained from the patient and the skin site was selected with CT guidance. Fentanyl and Versed were administered with IV conscious sedation provided by the nursing staff throughout the procedure. Using CT guidance, after sterile preparation, draping, local anesthesia, the Yueh needle catheter was advanced into the pelvic fluid collection, and after dilatation a 10-Nigerien pigtail drain was inserted and affixed to the skin. Aspirated material appeared to be primarily old blood, but a specimen was nonetheless sent for microbiologic evaluation. There were no complications. The patient tolerated the procedure well. Total sedation time [address]-guided percutaneous placement of a 10-Nigerien pigtail drain to the pelvis fluid collection. Initial fluid aspiration appeared to represent old hematoma/old blood, but a specimen was sent for microbiologic evaluation. A 10-Nigerien pigtail drain was affixed in place and connected to a grenade drainage. Dictated by... Esequiel Lindsay M.D. THIS IS AN ELECTRONICALLY VERIFIED REPORT [facility] A Service of [facility] & [facility] RADIOLOGY TEXT RESULTS PATIENT: FRANDY CONLEY LOCATION: [facility] 219-01 : 35 UNIT #: [id number] AGE: [address]: Manuel Dolan III, MD SEX: F ORDER DR: Esequiel Lindsay M.D. at 08/18/2016 1:48 PM TEV/gz TD: 08/17/2016 09:10 JOB #: [id number] MEDICAL IMAGING REPORT Page 1 of 1 COPY
[2016-08-14] MEDS ORDERED: TYLENOL325 M1 PO (15:04)
[2016-08-14] MEDS ORDERED: DOCUSATE SODIU100 MG PO (15:12)
[2016-08-14] MEDS ORDERED: ATENOLOL25 MG PO (15:13)
[2016-08-14] MEDS ORDERED: AMLODIPINE BESYL5 MG PO (15:14)
[2016-08-14] MEDS ORDERED: OMNICEF300 M1 PO (15:15)
[2016-08-14] MEDS ORDERED: HYDROCODONE/APA1 T16 PO (15:16)
[2016-08-14 16:10] LABS: HEMATOCRIT 32.9 % (35.0-45.0); HEMOGLOBIN 10.5 gm/dL (12.0-16.0); MEAN CELL VOLUME 89.5 FL (83-96); MEAN CORPUSCULAR HEMOGLOBIN 28.5 PG (28-34); MEAN CORPUSCULAR HGB CONC 31.9 g/dL (30-36); MEAN PLATELET VOLUME 7.3 FL (6.5-11.5); RED BLOOD COUNT 3.67 X10e (3.90-5.30); WHITE BLOOD COUNT 14.7 X10e3 (4.0-10.5)
[2016-08-14 16:27] LABS: INR 1.5; PROTHROMBIN TIME (PATIENT) 16.5 SECONDS (9.6-11.5)
[2016-08-14 16:39] LABS: ALBUMIN SERUM 2.5 g/dL (3.5-5.0); BILIRUBIN,TOTAL 0.5 mg/dL (0.2-2.0); BUN/CREATININE RATIO 16.66; CALCIUM SERUM 8.7 mg/dL (8.4-10.2); CREATININE SERUM 1.2 mg/dL (0.6-1.4); GLOM FILT RATE Estimated 45.9 mL/min (>60); POTASSIUM 4.6 mmol/L (3.5-5.1); PROTEIN TOTAL SERUM 6.5 g/dL (6.0-8.3)
[2016-08-15 09:11] LABS: HEMATOCRIT 28.4 % (35.0-45.0); HEMOGLOBIN 9.1 gm/dL (12.0-16.0); MEAN CELL VOLUME 89.7 FL (83-96); MEAN CORPUSCULAR HEMOGLOBIN 28.8 PG (28-34); MEAN CORPUSCULAR HGB CONC 32.1 g/dL (30-36); MEAN PLATELET VOLUME 7.3 FL (6.5-11.5); RED BLOOD COUNT 3.16 X10e (3.90-5.30); RED CELL DISTRIBUTION WIDTH 15.1 % (11.0-15.5)
[2016-08-15 09:22] LABS: INR 1.4; PROTHROMBIN TIME (PATIENT) 14.8 SECONDS (9.6-11.5)
[2016-08-15 10:13] LABS: ALBUMIN SERUM 2.1 g/dL (3.5-5.0); BILIRUBIN,TOTAL 0.6 mg/dL (0.2-2.0); CALCIUM SERUM 8.5 mg/dL (8.4-10.2); GLOM FILT RATE Estimated 56.7 mL/min (>60); POTASSIUM 4.6 mmol/L (3.5-5.1); PROTEIN TOTAL SERUM 5.1 g/dL (6.0-8.3)
[2016-08-16 07:45] LABS: HEMATOCRIT 27.7 % (35.0-45.0); HEMOGLOBIN 9.1 gm/dL (12.0-16.0); MEAN CORPUSCULAR HEMOGLOBIN 29.3 PG (28-34); MEAN CORPUSCULAR HGB CONC 32.9 g/dL (30-36); MEAN PLATELET VOLUME 7.3 FL (6.5-11.5); RED BLOOD COUNT 3.11 X10e (3.90-5.30); RED CELL DISTRIBUTION WIDTH 15.3 % (11.0-15.5); WHITE BLOOD COUNT 9.7 X10e3 (4.0-10.5)
[2016-08-18 05:27] LABS: HEMATOCRIT 27.1 % (35.0-45.0); MEAN CELL VOLUME 88.7 FL (83-96); MEAN CORPUSCULAR HEMOGLOBIN 29.4 PG (28-34); MEAN CORPUSCULAR HGB CONC 33.2 g/dL (30-36); MEAN PLATELET VOLUME 7.3 FL (6.5-11.5); RED BLOOD COUNT 3.05 X10e (3.90-5.30); RED CELL DISTRIBUTION WIDTH 15.1 % (11.0-15.5); WHITE BLOOD COUNT 9.5 X10e3 (4.0-10.5)
[2016-08-18 06:01] LABS: CALCIUM SERUM 8.8 mg/dL (8.4-10.2); GLOM FILT RATE Estimated 56.7 mL/min (>60); POTASSIUM 3.8 mmol/L (3.5-5.1)
[2016-08-20 06:37] LABS: BASOPHIL# 0.1 X10e3 (0-0.3); BASOPHIL% 0.6 % (0-2.5); EOSINOPHIL# 0.1 X10e3 (0-0.7); EOSINOPHIL% 1.5 % (0.0-7.0); HEMATOCRIT 28.9 % (35.0-45.0); HEMOGLOBIN 9.2 gm/dL (12.0-16.0); LYMPHOCYTE# 1.7 X10e3 (1.0-3.5); LYMPHOCYTE% 16.8 % (17.0-45.0); MEAN CELL VOLUME 88.8 FL (83-96); MEAN CORPUSCULAR HEMOGLOBIN 28.4 PG (28-34); MEAN PLATELET VOLUME 7.1 FL (6.5-11.5); MONOCYTE# 0.9 X10e3 (0-1.0); MONOCYTE% 9.1 % (3.0-12.0); NEUTROPHIL# 7.2 X10e3 (1.5-7.1); PLATELET COUNT 471 X10e3 (140-420); RED BLOOD COUNT 3.25 X10e (3.90-5.30); RED CELL DISTRIBUTION WIDTH 15.3 % (11.0-15.5)
[2016-08-20 06:39] LABS: DIFF IND NO
[2016-08-20 07:02] LABS: BUN/CREATININE RATIO 15.45; CALCIUM SERUM 8.7 mg/dL (8.4-10.2); CREATININE SERUM 1.1 mg/dL (0.6-1.4); GLOM FILT RATE Estimated 50.8 mL/min (>60); POTASSIUM 4.2 mmol/L (3.5-5.1)
== END 2016-08-25 10:05 | disposition home or self-care (01) | DRG 920 ==
LOC: C2A 13:37
PROVIDERS: Surgery
PROC: 0J9C3ZZ Drainage of Pelvic Region Subcutaneous Tissue and Fascia, Percutaneous Approach (ICD-10-PCS; principal; 2016-08-14)
PROC: 02HV33Z Insertion of Infusion Device into Superior Vena Cava, Percutaneous Approach (ICD-10-PCS; 2016-08-14)
PROC: 4A02X4A Measurement of Cardiac Electrical Activity, Guidance, External Approach (ICD-10-PCS; 2016-08-14)
DX: K91.870 Postprocedural hematoma of a digestive system organ or structure following a digestive system procedure (principal); K56.60 Unspecified intestinal obstruction; T81.4XXA Infection following a procedure, initial encounter; I48.91 Unspecified atrial fibrillation; N73.9 Female pelvic inflammatory disease, unspecified; Z93.3 Colostomy status; Y83.8 Other surgical procedures as the cause of abnormal reaction of the patient, or of later complication, without mention of misadventure at the time of the procedure; I10 Essential (primary) hypertension; E78.5 Hyperlipidemia, unspecified; I25.10 Atherosclerotic heart disease of native coronary artery without angina pectoris; G47.33 Obstructive sleep apnea (adult) (pediatric)
CPT/HCPCS: 74176; 76080; 77012; 80048; 80053; 82947; 85025; 85027; 85610; 87070; 87076; 87205; 97110; 97116; 97162; 97165; 97530; C1729; G8978-GP; G8979-GP; G8987-GO; G8988-GO; G8989-GO; J1335; J2250; J2270; J2550; J3010; Q9967

== ENCOUNTER 2016-12-16 15:54 | Observation (INO) | payer MEDICARE, BC ==
[~2016-12-16] VITALS: Ht 167.6 cm; Wt 71.2 kg
--- NOTE | ~2016-12-16 | HP ---
Unit #: [id number] #: [id number] Patient: FRANDY CONLEY [id number] [facility]. [place], [place] [address] [id number] MR#: [id number] NAME: FRANDY CONLEY ROOM: 55 Age: 81 Sex: F Admission Date: 12/16/2016 : 1935 Attending Physician: Junior Day M.D. Primary Care Physician: Kelly Frey A.P.R.N. HISTORY AND PHYSICAL CHIEF COMPLAINT Chest pain and near syncope. HISTORY OF PRESENT ILLNESS This is an 81-year-old female known to Dr. Ghosh with a prior medical history of a normal Lexiscan Cardiolite stress test in May 2016 and a cardiac cath in 2010 per [facility] which showed mid LAD 30% to 40%, and luminal irregularities of the RCA and left circumflex. She also has a history of hypertension, hyperlipidemia, obstructive sleep apnea, DVT, PE, and paroxysmal atrial fibrillation on chronic anticoagulation with Coumadin. Her last echocardiogram done January 2016 showed an LVEF of 65%, mild tricuspid regurg, RVSP 51 mmHg. She presented to the ER yesterday with reports of intermittent chest pain accompanied with dyspnea and heart fluttering. She states she went to the store with her friend yesterday and upon return when getting out of the car, she had the heart fluttering with mid chest tightness that spread up into her neck and her jaw and she felt lightheaded. She states she was shaking and her knees were weak, she could no longer stand. Her friend helped lower her to the ground. She states she lost consciousness for seconds. Reported to the ER where she was found in sinus bradycardia with no ischemic changes on her EKG. Her troponins were negative x2. She currently has some lingering chest tightness. Denies nausea, diaphoresis or radiating pain. She states she has not been having the chest discomfort prior than a few days ago. She does have some dyspnea on exertion. Over the last days, the chest pains have occurred when she exerted herself and they usually resolve with rest. PAST MEDICAL HISTORY 1. Lexiscan Cardiolite stress test May 2016, negative for ischemia. 2. Cardiac cath 2010 showed mild LAD 30% to 40%, RCA luminal irregularities, and left circumflex luminal irregularities. 3. Hypertension. 4. Hyperlipidemia. 5. Paroxysmal atrial fib, on chronic anticoagulation with Coumadin. 6. Obstructive sleep apnea. 7. DVT/PE. 8. Reformed tobacco abuse. 9. History of near syncope. PAST SURGICAL HISTORY 1. 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 2. Takedown of colostomy. 3. Cataract extraction. Unit #: [id number] #: [id number] Patient: FRANDY CONLEY 4. Cholecystectomy. 5. Left total knee replacement. 6. Hysterectomy. 7. Dental surgery. SOCIAL HISTORY The patient is a reformed smoker. She quit smoking approximately (1) years ago but previously smoked one to one and a half packs per day for 20 years. She denies illicit drug use. She drinks a rum and Coke once a week. She lives alone and is fairly active. Reportedly, she walks several times a week. FAMILY HISTORY Her sister had an TX and her mother had an TX. She is unsure of the ages. They were in their 60s. ALLERGIES She is allergic to penicillin and diazepams, latex, and IV dye. HOME MEDICATIONS 1. Amiodarone 200 p.o. once a day. 2. Norvasc 5 mg p.o. daily. 3. Tenormin 25 mg p.o. daily. 4. Prilosec 20 mg p.o. twice a day. 5. Centrum Silver, one tab once a day. 6. Coumadin 2.5 mg p.o. Wednesday through Wednesday. REVIEW OF SYSTEMS CONSTITUTIONAL: Negative for fever or chills. Reports no weight gain or weight loss. HEADACHE: No headache, hearing or vision changes. Positive for dizziness. CARDIOVASCULAR: Intermittent chest tightness. Positive for palpitations. Denies PND or orthopnea. Reports syncope. RESPIRATORY: Negative for cough or hemoptysis. Positive for dyspnea on exertion. GASTROINTESTINAL: No abdominal pain, nausea or vomiting. No bleeding. EXTREMITIES: No leg edema. PHYSICAL EXAMINATION VITAL SIGNS: Temp 98.1, heart rate 52, blood pressure 160/74, height 66 inches and weight 70.4 kg. GENERAL: This is a pleasant 81-year-old female in no acute distress. HEENT: Head is atraumatic and normocephalic. Pupils are equal and round, reactive to light. NECK: Trachea is midline. No thyromegaly or lymphadenopathy. No JVD. HEART: S1 and S2. Regular rate and rhythm. No murmurs, rubs or clicks. LUNGS: Clear to auscultation. Nonlabored respirations. ABDOMEN: Soft and nontender with bowel sounds present. EXTREMITIES: No pedal edema. Pupils are intact. No cyanosis. SKIN: Warm and dry. DIAGNOSTIC STUDIES LABORATORY: Sodium 139, potassium 4.4, chloride 112, BUN 29, creatinine 1.3, glucose 88, hemoglobin 10.1, hematocrit 32, white blood cell count 6, platelets 218, AST 22, ALT 13, alkaline phos. 80. Point of care troponin less than 0.05 and repeat troponin less than 0.05. BNP 266. Unit #: [id number] #: [id number] Patient: FRANDY CONLEY Lipid panel - cholesterol 209, triglycerides 263, LDL 108, HDL 48, PT 20.2, INR 1.9. IMAGING: Chest x-ray showed no acute disease. CARDIOVASCULAR: EKG shows sinus bradycardia with nonspecific T wave abnormalities. ASSESSMENT 1. Exertional angina pectoris. 2. Paroxysmal atrial fibrillation. 3. Near syncope, questionable bradycardia. 4. Hyperlipidemia. 5. Hypertension. 6. Negative Lexiscan Cardiolite stress test in May 2016. PLAN 1. Cardiac cath today. If no significant stenosis, we will send her home on an event monitor to evaluate cause of her near syncope. 2. Resume home medications per Med Rec sheet. 3. NPO for cardiac cath. Dictated by Cassia Ding APRN for Deborah Shankar/jeremy TD: 12/17/2016 12:52 JOB #: [id number] HISTORY AND PHYSICAL Page 1 of 1 X X HISTORY AND PHYSICAL
--- NOTE | ~2016-12-16 | HP ---
Unit #: [id number] #: [id number] Patient: FRANDY CONLEY [id number]. [place], [place] [address] [id number] MR#: [id number] NAME: FRANDY CONLEY ROOM: 553 Age: 81 Sex: F Admission Date: 12/16/2016 : 1935 Attending Physician: Junior Day M.D. Primary Care Physician: Kelly Frey A.P.R.N. HISTORY AND PHYSICAL REVISED REPORT See Addendum CHIEF COMPLAINT Chest pain and near syncope. HISTORY OF PRESENT ILLNESS This is an 81-year-old female known to Dr. Ghosh with a prior medical history of a normal Lexiscan Cardiolite stress test in May 2016 and a cardiac cath in 2010 per [facility] which showed mid LAD 30% to 40%, and luminal irregularities of the RCA and left circumflex. She also has a history of hypertension, hyperlipidemia, obstructive sleep apnea, DVT, PE, and paroxysmal atrial fibrillation on chronic anticoagulation with Coumadin. Her last echocardiogram done January 2016 showed an LVEF of 65%, mild tricuspid regurg, RVSP 51 mmHg. She presented to the ER yesterday with reports of intermittent chest pain accompanied with dyspnea and heart fluttering. She states she went to the store with her friend yesterday and upon return when getting out of the car, she had the heart fluttering with mid chest tightness that spread up into her neck and her jaw and she felt lightheaded. She states she was shaking and her knees were weak, she could no longer stand. Her friend helped lower her to the ground. She states she lost consciousness for seconds. Reported to the ER where she was found in sinus bradycardia with no ischemic changes on her EKG. Her troponins were negative x2. She currently has some lingering chest tightness. Denies nausea, diaphoresis or radiating pain. She states she has not been having the chest discomfort prior than a few days ago. She does have some dyspnea on exertion. Over the last days, the chest pains have occurred when she exerted herself and they usually resolve with rest. PAST MEDICAL HISTORY 1. Lexiscan Cardiolite stress test May 2016, negative for ischemia. 2. Cardiac cath 2010 showed mild LAD 30% to 40%, RCA luminal irregularities, and left circumflex luminal irregularities. 3. Hypertension. 4. Hyperlipidemia. 5. Paroxysmal atrial fib, on chronic anticoagulation with Coumadin. 6. Obstructive sleep apnea. 7. DVT/PE. 8. Reformed tobacco abuse. 9. History of near syncope. PAST SURGICAL HISTORY Unit #: [id number] #: [id number] Patient: FRANDY CONLEY 1. 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 2. Takedown of colostomy. 3. Cataract extraction. 4. Cholecystectomy. 5. Left total knee replacement. 6. Hysterectomy. 7. Dental surgery. SOCIAL HISTORY The patient is a reformed smoker. She quit smoking approximately (1) years ago but previously smoked one to one and a half packs per day for 20 years. She denies illicit drug use. She drinks a rum and Coke once a week. She lives alone and is fairly active. Reportedly, she walks several times a week. FAMILY HISTORY Her sister had an CT and her mother had an CT. She is unsure of the ages. They were in their 60s. ALLERGIES She is allergic to penicillin and diazepams, latex, and IV dye. HOME MEDICATIONS 1. Amiodarone 200 p.o. once a day. 2. Norvasc 5 mg p.o. daily. 3. Tenormin 25 mg p.o. daily. 4. Prilosec 20 mg p.o. twice a day. 5. Centrum Silver, one tab once a day. 6. Coumadin 2.5 mg p.o. Wednesday through Wednesday. REVIEW OF SYSTEMS CONSTITUTIONAL: Negative for fever or chills. Reports no weight gain or weight loss. HEADACHE: No headache, hearing or vision changes. Positive for dizziness. CARDIOVASCULAR: Intermittent chest tightness. Positive for palpitations. Denies PND or orthopnea. Reports syncope. RESPIRATORY: Negative for cough or hemoptysis. Positive for dyspnea on exertion. GASTROINTESTINAL: No abdominal pain, nausea or vomiting. No bleeding. EXTREMITIES: No leg edema. PHYSICAL EXAMINATION VITAL SIGNS: Temp 98.1, heart rate 52, blood pressure 160/74, height 66 inches and weight 70.4 kg. GENERAL: This is a pleasant 81-year-old female in no acute distress. HEENT: Head is atraumatic and normocephalic. Pupils are equal and round, reactive to light. NECK: Trachea is midline. No thyromegaly or lymphadenopathy. No JVD. HEART: S1 and S2. Regular rate and rhythm. No murmurs, rubs or clicks. LUNGS: Clear to auscultation. Nonlabored respirations. ABDOMEN: Soft and nontender with bowel sounds present. EXTREMITIES: No pedal edema. Pupils are intact. No cyanosis. SKIN: Warm and dry. DIAGNOSTIC STUDIES LABORATORY: Sodium 139, potassium 4.4, chloride 112, BUN 29, creatinine Unit #: [id number] #: [id number] Patient: FRANDY CONLEY L 1.3, glucose 88, hemoglobin 10.1, hematocrit 32, white blood cell count 6, platelets 218, AST 22, ALT 13, alkaline phos. 80. Point of care troponin less than 0.05 and repeat troponin less than 0.05. BNP 266. Lipid panel - cholesterol 209, triglycerides 263, LDL 108, HDL 48, PT 20.2, INR 1.9. IMAGING: Chest x-ray showed no acute disease. CARDIOVASCULAR: EKG shows sinus bradycardia with nonspecific T wave abnormalities. ASSESSMENT 1. Exertional angina pectoris. 2. Paroxysmal atrial fibrillation. 3. Near syncope, questionable bradycardia. 4. Hyperlipidemia. 5. Hypertension. 6. Negative Lexiscan Cardiolite stress test in May 2016. PLAN 1. Cardiac cath today. If no significant stenosis, we will send her home on an event monitor to evaluate cause of her near syncope. 2. Resume home medications per Med Rec sheet. 3. NPO for cardiac cath. Dictated by... Cassia Ding APRN for Deborah Shankar TD: 12/17/2016 12:52 JOB #: [id number] ADDENDUM PLAN (CONTINUED) 4. Rule out orthostatic hypotension. Blood pressures lying, sitting, and standing were negative for orthostatic hypotension. 1. Dictated by Cassia Ding APRN for Deborah Shankar TD: 12/17/2016 14:51 JOB #: [id number] CC: Sovera/invision Please Delete Unit #: [id number] #: [id number] Patient: FRANDY CONLEY HISTORY AND PHYSICAL Page 1 of 1 X X HISTORY AND PHYSICAL
--- NOTE | ~2016-12-16 | DS ---
Unit #: [id number] #: [id number] Patient: FRANDY CONLEY [id number] [facility]. [place], [place] [address] [id number] I MR#: [id number] NAME: FRANDY CONLEY ROOM: 553 Age: 81 Sex: F Admission Date: 12/16/2016 : 1935 Discharge Date: 12/18/2016 Attending Physician: Junior Day M.D. Primary Care Physician: Kelly Frey A.P.R.N. DISCHARGE SUMMARY DISCHARGE DIAGNOSES 1. Unstable angina. 2. Status post cardiac catheterization, 12/17/[address] Ghosh at [facility] that reveals the following results. a. Left main, normal. b. Left anterior descending artery without any significant stenosis. First diagonal branch of the left anterior descending with 99% stenosis at its origin. c. Circumflex artery, normal. d. Right coronary artery with 60% to 70% ostial stenosis. Posterior descending artery and posterior left ventricular branches normal. e. Ejection fraction of 50% to 55% with no mitral regurgitation. 3. A 2D echocardiogram on 12/17/2016 shows ejection fraction of 50% to 55% with mildly dilated left atrium. Moderate mitral regurgitation, moderate tricuspid regurgitation, and right ventricular systolic pressure of 43 mmHg. Trace pulmonic valvular regurgitation. 4. Near-syncope, questionable secondary to bradycardia. 5. Paroxysmal atrial fibrillation, in normal sinus rhythm, on chronic anticoagulation with Coumadin. 6. Hypertension. 7. Hyperlipidemia. 8. History of deep vein thrombosis/pulmonary embolism. 9. History of obstructive sleep apnea. 10. Former smoker. DISCHARGE MEDICATIONS 1. Omeprazole 20 mg b.i.d. 2. Amiodarone 200 mg daily. 3. Magnesium oxide 400 mg daily. 4. Coumadin 2.5 mg Wednesday through Wednesday. 5. Norvasc 5 mg daily. 6. Atenolol 25 mg daily. 7. Multivitamin one tablet daily. 8. Aspirin 81 mg daily. 9. Imdur 30 mg daily. HOSPITAL COURSE This is an 81-year-old female, who had a normal Lexiscan Cardiolite stress test in 05/2016 and cardiac catheterization in 2010, which shows nonobstructive coronary artery disease. She presented with intermittent chest pain, palpitations, and dyspnea. She had an episode of near syncope where she had a brief loss of consciousness. She was ruled out for an acute myocardial infarction where her troponin was negative for three Unit #: [id number] #: [id number] Patient: FRANDY CONLEY. Her EKG showed no acute ischemic changes. Echocardiogram was obtained, which found the patient to have normal left ventricular systolic function and had valvular heart disease with moderate mitral regurgitation, and moderate tricuspid regurgitation. Lipid levels were obtained, which showed elevation of cholesterol and triglycerides. LDL was 108. She was subtherapeutic on admission and received Coumadin as appropriate. Orthostatics were negative, but the patient was hypertensive. Because of exertional angina pectoris, cardiac catheterization was recommended for which the patient agreed. She went to the cardiac catheterization lab and was found to have 99% stenosis to the first diagonal branch of the LAD, which most likely cause for chest pain. The right coronary artery has 60% to 70% ostial stenosis. No fracture flow reserve measurement was done. It was felt that the patient should continue on medical therapy. She has no IV contrast allergy and was premedicated prior to the cardiac catheterization with no events. The patient demonstrated sinus bradycardia throughout her stay where heart rate was in the upper 50s. She was continued on the home dose of beta-aguila. Her blood pressure remained stable. It was felt that the patient has a near syncopal episode was secondary to her bruce arrhythmias. She had no arrhythmias. Dr. Cain explained the findings of the cardiac catheterization to the patient. She is stable for discharge today. PHYSICAL EXAMINATION VITAL SIGNS: Blood pressure 138/61 and heart rate 51. NECK: With no jugular venous distention. LUNGS: Clear to auscultation without wheezes or rhonchi. ABDOMEN: Soft and nontender with bowel sounds present. HEART: S1 and S2 with regular rate and rhythm. No murmurs, rubs, or clicks. EXTREMITIES: Without leg edema. Right radial without hematoma or bruising. 4+ pulse. DIAGNOSTIC STUDIES LABORATORY RESULTS: Glucose 96, BUN 28, creatinine 1.1, sodium 139, and potassium 4.5. Magnesium 2.0. Cholesterol 209, triglycerides 263, LDL 108, and HDL 48. INR 1.9. White count 6.8, hemoglobin 11.2, hematocrit 34.8, and platelet count 209. CARDIOVASCULAR STUDIES: Rhythm strip shows sinus bradycardia with a rate in the 50s. DISCHARGE INSTRUCTIONS 1. The patient will be discharged home today. 2. Follow up with Dr. Ghosh on 02/02 at 01:45 p.m. 3. The patient will continue on aspirin for life. She was started on magnesium for 400 mg daily as prescribed. 4. Started on antianginal control with Imdur. 5. The patient was advised to continue on medical therapy. If angina was to continue she would need balloon angioplasty that could be performed on the diagonal branch of the LAD. The right coronary artery ostial stenosis should be better define using FFR measurement across the stenosis. 6. Because of bradycardia and near syncope, we will have event monitor placed as an outpatient to rule out significant bruce arrhythmias that could cause near-syncope. This will be mailed to the patient. Unit #: [id number] #: [id number] Patient: FRANDY CONLEY Dictated by... Devin Tomlinson/ruben TD: 12/21/2016 01:40 JOB #: [id number] CC: Deborah Shankar A.P.R.N. DISCHARGE SUMMARY Page [address] APRN X DISCHARGE SUMMARY
--- NOTE | ~2016-12-16 | EKG ---
PATIENT: FRANDY CONLEY UNIT #: [id number] Ventricular Rate: 52 BPM Atrial Rate: 52 BPM P-R Interval: 200 ms QRS Duration: 100 ms Q-T Interval: 464 ms QTC Calculation(Bezet): 431 ms P [place]: 65 degrees Calculated R [place]: -8 degrees Calculated T [place]: 31 degrees Diagnosis Line: Sinus bradycardia Diagnosis Line: Voltage criteria for left ventricular hypertrophy Diagnosis Line: Inferior infarct , age undetermined Diagnosis Line: Abnormal ECG Diagnosis Line: When compared with ECG of 16-DEC-2016 16:13, Diagnosis Line: (unconfirmed) Diagnosis Line: Inferior infarct is now Present Diagnosis Line: Confirmed by MARY GELLER MD ([id number]) on Diagnosis Line: 12/18/2016 7:31:23 AM INTERPRETING MD: DUYEN OLVERA
--- NOTE | ~2016-12-16 | CR72 ---
[facility] A Service of [facility] RADIOLOGY TEXT RESULTS PATIENT: FRANDY CONLEY LOCATION: [facility] [address] : [birth year] UNIT #: [id number] AGE: [address]: Junior Day MD SEX: F ORDER DR: [id number] [facility] [address]. [place], [place] [address] [id number] MR#: [id number] Acc #: [id number] NAME: FRANDY CONLEY : 1935 SEX: F STUDY DATE/TIME: 12/16/2016 16:27 UNIT: [facility] ROOM: [facility] STUDY DESCRIPTION: CR Chest Single View Portable Attending Physician: Junior Day M.D. Ordering Physician: Roro Milian M.D. Primary Care Physician: Kelly Frey A.P.R.N. MEDICAL IMAGING REPORT This report is preliminary unless electronic signature is present EXAM Portable chest INDICATIONS Chest pain and shortness of air for 4 days. COMPARISON 04/09/2016 FINDINGS A portable view of the chest was obtained. The heart size and vascularity are normal and the lungs are clear except for calcified granulomas. The bones are unremarkable. IMPRESSION No active disease. Dictated by... Babar Tiwari M.D. THIS IS AN ELECTRONICALLY VERIFIED REPORT Babar Tiwari M.D. at 12/17/2016 7:38 AM FEL/psc TD: 12/17/2016 00:49 JOB #: [id number] MEDICAL IMAGING REPORT Page 1 of 1 COPY
--- NOTE | ~2016-12-16 | EKG ---
PATIENT: FRANDY CONLEY UNIT #: [id number] Ventricular Rate: 56 BPM Atrial Rate: 56 BPM P-R Interval: 168 ms QRS Duration: 96 ms Q-T Interval: 466 ms QTC Calculation(Bezet): 449 ms P [place]: 65 degrees Calculated R [place]: -21 degrees Calculated T [place]: 24 degrees Diagnosis Line: Sinus bradycardia Diagnosis Line: Voltage criteria for left ventricular hypertrophy Diagnosis Line: Abnormal ECG Diagnosis Line: When compared with ECG of 05-AUG-2016 13:46, Diagnosis Line: No significant change was found Diagnosis Line: Confirmed by EDOUARD HOLM MD ([id number]) on 12/17/2016 Diagnosis Line: 7:55:32 PM INTERPRETING MD: MIHAI OLVERA
[~2016-12-16 15:54] MED LIST changes: +AMLODIPINE BESYL5 MG PO; +DOCUSATE SODIU100 MG PO; +HYDROCODONE/APA1 T16 PO; +OMNICEF300 M1 PO; +TYLENOL325 M1 PO
[2016-12-16 16:31] LABS: BASOPHIL% 0.7 % (0-2.5); EOSINOPHIL# 0.1 X10e3 (0-0.7); EOSINOPHIL% 1.3 % (0.0-7.0); HEMOGLOBIN 10.5 gm/dL (12.0-16.0); LYMPHOCYTE# 2.1 X10e3 (1.0-3.5); LYMPHOCYTE% 35.1 % (17.0-45.0); MEAN CORPUSCULAR HEMOGLOBIN 29.1 PG (28-34); MEAN CORPUSCULAR HGB CONC 32.7 g/dL (30-36); MEAN PLATELET VOLUME 7.7 FL (6.5-11.5); MONOCYTE# 0.7 X10e3 (0-1.0); MONOCYTE% 12.3 % (3.0-12.0); NEUTROPHIL% 50.6 % (40-75); PLATELET COUNT 218 X10e3 (140-420); RED BLOOD COUNT 3.59 X10e (3.90-5.30); RED CELL DISTRIBUTION WIDTH 13.4 % (11.0-15.5)
[2016-12-16 16:34] LABS: DIFF IND NO
[2016-12-16 16:39] LABS: INR 1.7; PARTIAL THROMBOPLASTIN TIME 34.4 SECONDS (23.5-31.3); PROTHROMBIN TIME (PATIENT) 18.7 SECONDS (10.0-11.7)
[2016-12-16 16:49] LABS: ALKALINE PHOSPHATASE 80 U/L (32-92); ALT (SGPT) 13 U/L (10-40); AST (SGOT) 22 U/L (10-42); BILIRUBIN,TOTAL 0.5 mg/dL (0.2-2.0); BLOOD UREA NITROGEN 33 mg/dL (9-23); CARBON DIOXIDE 22 mmol/L (22-31); CHLORIDE 108 mmol/L (100-111); CREATININE SERUM 1.5 mg/dL (0.6-1.4); GLOM FILT RATE Estimated 32.4 mL/min (>60); GLUCOSE FASTING 100 mg/dL (70-110); MAGNESIUM 2.1 mg/dL (1.6-3.0); POTASSIUM 4.5 mmol/L (3.5-5.1); PROTEIN TOTAL SERUM 7.3 g/dL (6.0-8.3); SODIUM 136 mmol/L (135-145)
[2016-12-16 16:50] LABS: BILIRUBIN, DIRECT <0.1 mg/dL (0.0-0.2); BILIRUBIN,INDIRECT 0.4 mg/dL (0.0-0.9)
[2016-12-16 16:53] LABS: POC - CKMB <1.0 ng/mL (0.0-7.9); POC - TROPONIN <0.05 ng/mL (<=0.05)
[2016-12-16] MEDS ORDERED: PRILOSEC PO (17:04)
[2016-12-16] MEDS ORDERED: NORVASC PO (17:04)
[2016-12-16] MEDS ORDERED: AMIODARONE HCL200 MG PO (17:04)
[2016-12-16] MEDS ORDERED: TENORMIN25 MG PO (17:04)
[2016-12-16] MEDS ORDERED: COUMADIN2.5 MG PO (17:05)
[2016-12-16] MEDS ORDERED: CENTRUM SILVER PO (17:05)
[2016-12-16 19:25] LABS: URINE SOURCE CLEAN CATCH
[2016-12-16 19:32] LABS: URINE APPEARANCE CLEAR; URINE BILIRUBIN NEG (NEG); URINE BLOOD NEG (NEG); URINE COLOR YELLOW; URINE GLUCOSE NEG (NEG); URINE KETONE NEG (NEG); URINE LEUKOCYTE ESTERASE TRACE (NEG); URINE NITRATE NEG (NEG); URINE PROTEIN TRACE (NEG); URINE SPECIFIC GRAVITY 1.012 (1.003-1.035); URINE UROBILINOGEN 0.2 MG/DL (NEG)
[2016-12-16 19:35] LABS: CULTURE INDICATED? YES; URINE BACTERIA AUWI NEG (NEGATIVE); URINE SQUAMOUS EPITHELIAL CELL OCC /[HPF]
[2016-12-16 19:36] LABS: CHOLESTEROL 209 mg/dL (0-200); HDL CHOLESTEROL 48 mg/dL (35-95); LDL CHOLESTEROL 108 mg/dL (-130); LDL/HDL RATIO 2 RATIO (0-4); TRIGLYCERIDES 263 mg/dL (10-160)
[2016-12-17 07:13] LABS: INR 1.9; PARTIAL THROMBOPLASTIN TIME 35.8 SECONDS (23.5-31.3); PROTHROMBIN TIME (PATIENT) 20.2 SECONDS (10.0-11.7)
[2016-12-17 07:30] LABS: BUN/CREATININE RATIO 22.3; CALCIUM SERUM 8.9 mg/dL (8.4-10.2); CREATININE SERUM 1.3 mg/dL (0.6-1.4); GLOM FILT RATE Estimated 38.4 mL/min (>60); POTASSIUM 4.4 mmol/L (3.5-5.1)
[2016-12-17 13:41] LABS: HEMATOCRIT 34.8 % (35.0-45.0); HEMOGLOBIN 11.2 gm/dL (12.0-16.0); MEAN CELL VOLUME 89.5 FL (83-96); MEAN CORPUSCULAR HEMOGLOBIN 28.8 PG (28-34); MEAN CORPUSCULAR HGB CONC 32.2 g/dL (30-36); RED BLOOD COUNT 3.89 X10e (3.90-5.30); RED CELL DISTRIBUTION WIDTH 13.3 % (11.0-15.5); WHITE BLOOD COUNT 6.8 X10e3 (4.0-10.5)
[2016-12-17 14:02] LABS: INR 1.9; PARTIAL THROMBOPLASTIN TIME 31.3 SECONDS (23.5-31.3); PROTHROMBIN TIME (PATIENT) 20.7 SECONDS (10.0-11.7)
[2016-12-17 14:12] LABS: BUN/CREATININE RATIO 25.45; CREATININE SERUM 1.1 mg/dL (0.6-1.4); GLOM FILT RATE Estimated 47.1 mL/min (>60); POTASSIUM 4.5 mmol/L (3.5-5.1)
[2016-12-18] MEDS ORDERED: BAYER CHEWABLE81 MG PO (09:24)
[2016-12-18] MEDS ORDERED: IMDUR-ER30 M1 PO (09:25)
[2016-12-18] MEDS ORDERED: MAGOX 400400 MG PO (09:25)
== END 2016-12-18 10:04 | disposition home or self-care (01) ==
LOC: CED 15:54 → CEDOF 18:50 → C5B 19:16 → CEDOF 19:16 → CED 19:16 → C5B 22:14 → CEDOF 22:14 → C5B 12-18 10:04
PROVIDERS: Internal Medicine Cardiovascular Disease; Student in an Organized Health Care Education/Training Program
DX: I25.10 Atherosclerotic heart disease of native coronary artery without angina pectoris (principal); I08.1 Rheumatic disorders of both mitral and tricuspid valves; I10 Essential (primary) hypertension; E78.5 Hyperlipidemia, unspecified; G47.33 Obstructive sleep apnea (adult) (pediatric); I48.0 Paroxysmal atrial fibrillation; Z79.01 Long term (current) use of anticoagulants; Z86.718 Personal history of other venous thrombosis and embolism; Z86.711 Personal history of pulmonary embolism; Z87.891 Personal history of nicotine dependence; Z93.3 Colostomy status; Z96.652 Presence of left artificial knee joint; Z88.8 Allergy status to other drugs, medicaments and biological substances; Z88.0 Allergy status to penicillin; Z79.899 Other long term (current) drug therapy
CPT/HCPCS: 36415; 71010; 80048; 80061; 80076; 81003; 82553; 83036; 83735; 83880; 84484; 85025; 85027; 85610; 85730; 87086; 93005; 93306; 96361; 96374; 96375; 99285; C1769; C1887; C1894; G0378; J1200; J1644; J2250; J2270; J2930; J3010

== ENCOUNTER 2016-12-31 13:29 | Observation (INO) | payer MEDICARE, BC ==
[~2016-12-31] VITALS: Ht 172.7 cm; Wt 70.4 kg
--- NOTE | ~2016-12-31 | HP ---
Unit #: [id number] #: [id number] Patient: FRANDY CONLEY [id number] [facility]. [place], [place] [address] [id number] MR#: [id number] NAME: FRANDY CONLEY ROOM: 554 Age: 81 Sex: F Admission Date: 12/31/2016 : 1935 Attending Physician: Sebastián Ghosh M.D. Primary Care Physician: Kelly Frey A.P.R.N. HISTORY AND PHYSICAL HISTORY OF PRESENT ILLNESS This is an 81-year-old white female who is known to Dr. Ghosh and has a history of hypertension, hyperlipidemia and paroxysmal atrial fibrillation where she is on anticoagulation with Coumadin. The patient was discharged from this facility on December 18 because of chest pain. She underwent cardiac catheterization where she was found to have right coronary artery with 60% to 70% stenosis. Circumflex artery was normal. First diagonal branch of the LAD had 99% stenosis. She was continued on medical therapy. She also has had recurrent near-syncopal episodes. Yesterday the patient was walking in her house and had an episode of dizziness where she felt as if she may pass out. She was able to get almost to the chair and went to the floor without loss of consciousness. Her symptoms have been ongoing, especially with dizziness, for more than two weeks. She came to the emergency room for evaluation where chest pain was relieved after nitroglycerin. She was also treated with aspirin. Her initial troponin is negative. There were no acute EKG changes. She is known to have sick sinus syndrome and paroxysmal atrial fibrillation where she has been on amiodarone and beta aguila. PAST MEDICAL HISTORY 1. Cardiac catheterization 12/17/2016 which revealed left main normal. LAD without any significant stenosis. First diagonal branch of the LAD with 99% stenosis at its origin. Circumflex artery normal. Right coronary artery with 60% to 70% ostial stenosis. PDA and PLV branches normal. Ejection fraction of 50% to 55%. 2. Two-D echocardiogram 12/17/2016 ejection fraction of 50% to 55% with mildly dilated left atrium. Moderate mitral regurgitation and moderate tricuspid regurgitation. Right ventricular systolic pressure of 43 mmHg. 3. Previous episodes of syncope. 4. Paroxysmal atrial fibrillation, in normal sinus rhythm on anticoagulation with Coumadin. 5. Hypertension. 6. Hyperlipidemia. 7. History of deep vein thrombosis/pulmonary embolism. 8. Obstructive sleep apnea. 9. Former smoker. PAST SURGICAL HISTORY 1. 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 2. Takedown of colostomy. 3. Cholecystectomy. 4. Hysterectomy. Unit #: [id number] #: [id number] Patient: FRANDY CONLEY 5. Left total knee replacement. 6. Cataract extraction. SOCIAL HISTORY The patient lives at home alone. She quit smoking many years ago but previously smoked one to jzw-pke-f-half packs a day for 20 years. She has no illicit drug or alcohol use. Drinks occasional alcoholic beverage. She states she is reasonably active. FAMILY HISTORY Positive for myocardial infarction in a sister and mother. ALLERGIES IV contrast, diazepam and latex. HOME MEDICATIONS 1. Amiodarone 200 mg daily. 2. Norvasc 5 mg daily. 3. Atenolol 25 mg daily. 4. Prilosec 20 mg b.i.d. 5. Multivitamin one tablet daily. 6. Coumadin 2.5 mg Wednesday through Wednesday. 7. Aspirin 81 mg daily. 8. Magnesium oxide 400 mg daily. 9. Imdur 30 mg daily. REVIEW OF SYSTEMS A 10-point review of systems is negative except for details stated in the HPI. PHYSICAL EXAMINATION VITAL SIGNS: Blood pressure 188/91, heart rate 53, temperature 98.0. GENERAL: This is a well-developed, 81-year-old, white female who is in no acute respiratory distress. NEUROLOGICAL: She is awake, alert, and oriented. There are no focal weaknesses. NECK: Trachea is midline. No thyromegaly or lymphadenopathy. No jugular venous distention. HEART: S1, S2. Heart sounds are normal. No murmurs. No gallops or clicks. Irregular rate and rhythm. ABDOMEN: Soft, nontender, with bowel sounds present. EXTREMITIES: Without leg edema. SKIN: Warm and dry. DIAGNOSTIC STUDIES LABORATORY: Glucose 91, BUN 38, creatinine 1.5, sodium 138, potassium 4.9, BNP 479, ProTime 14.6, INR 1.3, troponin less than 0.05 x2, white count 6.8, hemoglobin 11.2, hematocrit 33.9, platelet count is 259. IMAGING: Chest x-ray shows no active disease. CARDIOVASCULAR: EKG shows sinus bradycardia, rate of 55 beats per minute, otherwise normal. IMPRESSION 1. Exertional angina. 2. Near syncope. Unit #: [id number] #: [id number] Patient: FRANDY CONLEY 3. Two-vessel coronary artery disease. 4. Paroxysmal atrial fibrillation, in normal sinus rhythm. 5. Sinus bradycardia. 6. Hypertension. 7. Hyperlipidemia. PLAN 1. The patient was advised that we should still try medical therapy because of risk of stent placement at the ostium of a small diagonal branch. This has been discussed with the patient and she is agreeable. 2. Will decrease amiodarone to 100 mg daily because of bradycardia. 3. Hold atenolol if heart rate is below 45. 4. Will obtain orthostatics to rule out postural hypotension. 5. Home in the a.m. if stable. Dictated by Joseph TomlinsonRImelda for Deborah Shankar/isaac TD: 01/01/2017 20:26 JOB #: [id number] HISTORY AND PHYSICAL Page [address] APRN X HISTORY AND PHYSICAL
--- NOTE | ~2016-12-31 | EKG ---
PATIENT: FRANDY CONLEY UNIT #: [id number] Ventricular Rate: 55 BPM Atrial Rate: 55 BPM P-R Interval: 166 ms QRS Duration: 98 ms Q-T Interval: 458 ms QTC Calculation(Bezet): 438 ms P [place]: 77 degrees Calculated R [place]: -10 degrees Calculated T [place]: 42 degrees Diagnosis Line: Sinus bradycardia Diagnosis Line: Voltage criteria for left ventricular hypertrophy Diagnosis Line: Borderline ECG Diagnosis Line: When compared with ECG of 17-DEC-2016 05:50, Diagnosis Line: No significant change was found Diagnosis Line: Confirmed by EDOUARD HOLM MD ([id number]) on 01/02/2017 Diagnosis Line: 8:21:57 AM INTERPRETING MD: MIHAI OLVERA
--- NOTE | ~2016-12-31 | CR72 ---
[facility] A Service of [facility] RADIOLOGY TEXT RESULTS PATIENT: FRANDY CONLEY LOCATION: [place] [address] : [birth year] UNIT #: [id number] AGE: [address]: Sebastián Ghosh MD SEX: F ORDER DR: [id number] [facility] [address] [facility]. [place], [place] [address] [id number] MR#: [id number] Acc #: [id number] NAME: FRANDY CONLEY : 1935 SEX: F STUDY DATE/TIME: 12/31/2016 13:57 UNIT: [facility] ROOM: [facility] STUDY DESCRIPTION: CR Chest Single View Portable Attending Physician: Sebastián Ghosh M.D. Ordering Physician: Saad Galvez M.D. Primary Care Physician: Kelly Frey A.P.R.N. MEDICAL IMAGING REPORT This report is preliminary unless electronic signature is present EXAM Portable chest x-ray 12/31/2016 HISTORY Chest pain. Dizziness chest pain short of air 1.5 week duration. FINDINGS AP radiograph of the chest is presented. Comparison 12/16/2016. Stable cardiac enlargement. Mildly tortuous thoracic aorta. The lungs are somewhat hyperinflated. Correlate with any know underlying chronic airway disease. This is a stable finding. There is no evidence of acute infectious or inflammatory disease, pleural effusion or pneumothorax and no suspicious nodule. Healed granulomatous disease stable. Degenerative changes in the spine. No acute appearing bony abnormality. Dictated by... Moris So M.D. THIS IS AN ELECTRONICALLY VERIFIED REPORT Moris So M.D. at 01/04/2017 10:42 AM REJI/taryn TD: 12/31/2016 18:29 JOB #: [id number] MEDICAL IMAGING REPORT Page 1 of 1 COPY
[~2016-12-31 13:29] MED LIST changes: +AMIODARONE HCL200 MG PO; +BAYER CHEWABLE81 MG PO; +IMDUR-ER30 M1 PO; +MAGOX 400400 MG PO; +NORVASC PO; +PRILOSEC PO; +TENORMIN25 MG PO
[2016-12-31 14:54] LABS: POC - CKMB 1.2 ng/mL (0.0-7.9); POC - TROPONIN <0.05 ng/mL (<=0.05)
[2016-12-31 14:56] LABS: BASOPHIL% 0.5 % (0-2.5); EOSINOPHIL# 0.1 X10e3 (0-0.7); EOSINOPHIL% 1.1 % (0.0-7.0); HEMATOCRIT 33.9 % (35.0-45.0); HEMOGLOBIN 11.2 gm/dL (12.0-16.0); LYMPHOCYTE# 1.9 X10e3 (1.0-3.5); LYMPHOCYTE% 27.4 % (17.0-45.0); MEAN CELL VOLUME 89.3 FL (83-96); MEAN CORPUSCULAR HEMOGLOBIN 29.4 PG (28-34); MEAN PLATELET VOLUME 7.9 FL (6.5-11.5); MONOCYTE# 0.7 X10e3 (0-1.0); MONOCYTE% 10.7 % (3.0-12.0); NEUTROPHIL# 4.1 X10e3 (1.5-7.1); NEUTROPHIL% 60.3 % (40-75); PLATELET COUNT 259 X10e3 (140-420); RED CELL DISTRIBUTION WIDTH 13.4 % (11.0-15.5); WHITE BLOOD COUNT 6.8 X10e3 (4.0-10.5)
[2016-12-31 14:57] LABS: DIFF IND NO
[2016-12-31 15:18] LABS: ALKALINE PHOSPHATASE 87 U/L (32-92); ALT (SGPT) 19 U/L (10-40); AST (SGOT) 25 U/L (10-42); BILIRUBIN,TOTAL 0.1 mg/dL (0.2-2.0); BLOOD UREA NITROGEN 38 mg/dL (9-23); BUN/CREATININE RATIO 25.33; CALCIUM SERUM 9.3 mg/dL (8.4-10.2); CARBON DIOXIDE 23 mmol/L (22-31); CHLORIDE 106 mmol/L (100-111); CREATININE SERUM 1.5 mg/dL (0.6-1.4); GLOM FILT RATE Estimated 32.4 mL/min (>60); GLUCOSE FASTING 91 mg/dL (70-110); MAGNESIUM 2.2 mg/dL (1.6-3.0); POTASSIUM 4.9 mmol/L (3.5-5.1); PROTEIN TOTAL SERUM 7.5 g/dL (6.0-8.3); SODIUM 138 mmol/L (135-145)
[2016-12-31 15:19] LABS: INR 1.3; PROTHROMBIN TIME (PATIENT) 14.6 SECONDS (10.0-11.7)
[2016-12-31 15:22] LABS: BILIRUBIN, DIRECT <0.1 mg/dL (0.0-0.2)
[2016-12-31 16:32] LABS: POC - CKMB <1.0 ng/mL (0.0-7.9); POC - TROPONIN <0.05 ng/mL (<=0.05)
== END 2017-01-02 11:42 | disposition home or self-care (01) ==
LOC: CED 13:29 → CEDOF 16:12 → CED 16:35 → CEDOF 17:03 → C5B 17:03
PROVIDERS: Emergency Medicine
DX: I25.118 Atherosclerotic heart disease of native coronary artery with other forms of angina pectoris (principal); R55 Syncope and collapse; R00.1 Bradycardia, unspecified; I10 Essential (primary) hypertension; E78.5 Hyperlipidemia, unspecified; I48.0 Paroxysmal atrial fibrillation; G47.33 Obstructive sleep apnea (adult) (pediatric); Z86.711 Personal history of pulmonary embolism; Z86.718 Personal history of other venous thrombosis and embolism; Z87.891 Personal history of nicotine dependence; Z91.040 Latex allergy status; Z91.041 Radiographic dye allergy status; Z79.01 Long term (current) use of anticoagulants; Z79.82 Long term (current) use of aspirin; Z79.899 Other long term (current) drug therapy; Z90.49 Acquired absence of other specified parts of digestive tract; Z93.3 Colostomy status; Z96.652 Presence of left artificial knee joint; Z90.710 Acquired absence of both cervix and uterus; Z98.49 Cataract extraction status, unspecified eye
CPT/HCPCS: 71010; 80048; 80076; 82553; 83735; 83880; 84484; 85025; 85610; 85730; 93005; 99291; G0378

== ENCOUNTER → 2017-01-04 | Outpatient (CLI) | payer MEDICARE, BC ==
[2017-01-04 11:38] LABS: INR 2.3
[2017-01-04 11:40] LABS: PROTHROMBIN TIME (PATIENT) 24.6 SECONDS (10.0-11.7)
[2017-01-04 11:55] LABS: BUN/CREATININE RATIO 28.57; CALCIUM SERUM 9.1 mg/dL (8.4-10.2); CREATININE SERUM 1.4 mg/dL (0.6-1.4); GLOM FILT RATE Estimated 35.1 mL/min (>60); POTASSIUM 5.4 mmol/L (3.5-5.1)
== END | disposition home or self-care (01) ==
LOC: CLAB 10:24
PROVIDERS: Internal Medicine Cardiovascular Disease
DX: I48.91 Unspecified atrial fibrillation (principal); Z79.01 Long term (current) use of anticoagulants
CPT/HCPCS: 36415; 80048; 85610